=== PATIENT | female | born 1985 | race Caucasian/White ===

== ENCOUNTER 2021-09-20 14:16 | Emergency (ER) | payer BC, SELFPAY ==
[2021-09-20 14:31] VITALS: BP 144/108; PULSE 103; RESP 20; TEMP 36.6; O2SAT 98
--- NOTE | 2021-09-20 15:03 | ED.DENTAL ---
HPI - Dental/Oral General Chief complaint: Dental/Oral Stated complaint: Rt Facial Swelling Source: patient and RN notes reviewed Mode of arrival: ambulatory History of Present Illness HPI Narrative: This is a 36-year-old female who presented to urgent care with complaints of right teeth pain. According to patient she has had a fracture tooth for several months. She is currently looking for a dentist. She noted that last night her jaw and gums on her right side swelled up her decayed teeth. It would discharge home with antibiotics and ibuprofen and will follow up with her dentist. The patient denies SOB, CP, palpitation, extremity numbness, lightheadedness, dizziness, constipation, diarrhea, chills, or fever. Teeth map: 1. decay fracture and abscess 2. decay and abscess Related Data Allergies Allergy/AdvReac Type Severity Reaction Status Date / Time No Known Allergies Allergy Verified 09/20/21 14:55 Review of Systems Review of Systems: A 14 organ system Review of Systems was performed and pertinent positives included in the HPI, otherwise remaining ROS is negative. [facility] Family History Family History (Updated 09/20/21 @ 15:04 by ADELA DrewP-C) Other Family history non-contributory Exam Narrative: GENERAL: This is a well-nourished, well-developed patient, in no apparent distress. HEAD: normocephalic, atraumatic. EYES: PERRL. Sclera clear/white. Vision is grossly intact. EARS: External ears normal, auditory canals clear and without drainage, TMs normal without perforation. Hearing grossly intact. NOSE: External nose normal with no obvious nasal discharge, nares without redness, no rhinorrhea. THROAT: Mucous membranes moist, posterior pharynx clear. NECK: Neck supple, non-tender without lymphadenopathy, masses or thyromegaly. CARDIOVASCULAR: Regular rate and rhythm without murmurs, gallops, or rubs. RESPIRATORY: Clear to auscultation. Breath sounds equal bilaterally. No wheezes, rales, or rhonchi. GASTROINTESTINAL: Abdomen soft, non-tender, nondistended. Bowel sounds are active. No hepato-splenomegaly, or palpable masses. No guarding. SKIN: warm, intact with no suspicious lesions or rash, good texture and turgor. NEURO: awake, alert, and oriented to person, place and time. There were no obvious focal neurologic abnormalities. Steady gait EXTREMITIES: Normal range of motion. No edema. No calf tenderness. Negative Homans sign bilaterally. BACK: Nontender without deformity or crepitance. No flank tenderness. Mouth: Tooth #32-fractured decayed abscessed tooth, tooth #30 decayed and abscessed tooth Course Course Emergency Course: Patient will be treated with Augmentin x7 days and ibuprofen for a fracture, decayed and abscessed tooth Vital Signs Vital signs: Vital Signs Temperature 97.8 F 09/20/21 14:31 Pulse Rate 103 H 09/20/21 14:31 Respiratory Rate 20 09/20/21 14:31 Blood Pressure 144/108 H 09/20/21 14:31 Pulse Oximetry 98 09/20/21 14:31 Temperature 97.8 F 09/20/21 14:31 Pulse Rate 103 H 09/20/21 14:31 Respiratory Rate 20 09/20/21 14:31 Blood Pressure 144/108 H 09/20/21 14:31 Pulse Oximetry 98 09/20/21 14:31 MDM - Dental/Oral Differential Diagnosis Differential diagnosis: Likely gingival abscess, dental caries and dental abscess Discharge Plan Discharge Clinical Impression: Abscessed tooth, Fracture of tooth Patient Disposition: Home, Self-Care Condition: Stable Instructions: Antibiotic Form, Dental Abscess (ED) Additional Instructions: Avoid temperature extremes May apply heat or ice to the face Gentle brushing and flossing Antibiotic as directed Tylenol for lesser pain Use ibuprofen regularly Use the medication as provided for severe pain--caution each tablet contains 325 mg of Tylenol--the maximum dose of Tylenol is 4000 mg in 24 hours. This medication may cause constipation consider starting a laxative at this time Follow-up with
== END 2021-09-20 15:14 | disposition home or self-care (01) ==
PROVIDERS: Emergency Provider Nurse Practitioner
DX: K04.7 Periapical abscess without sinus (principal); S02.5XXA Fracture of tooth (traumatic), initial encounter for closed fracture
CPT/HCPCS: 99213; G0463

== ENCOUNTER 2022-03-20 16:10 | Emergency (ER) | payer BC, SELFPAY ==
[2022-03-20 16:12] VITALS: BP 138/118; PULSE 111; RESP 22; TEMP 36.3; O2SAT 99
--- NOTE | 2022-03-20 16:24 | PC.NURSE ---
blood glucose was 352 at 1622
[2022-03-20 16:27] LABS: Glucose Point of Care 352 mg/dl (65-105)
[2022-03-20 16:35] LABS: Basophils Percent Auto 0.4 % (0.2-1.2); Eosinophils Absolute Auto 0.2 K/mm3 (0-0.3); Eosinophils Percent Auto 1.9 % (0-4.4); Hematocrit 41.9 % (37.0-47.0); Hemoglobin 12.7 g/dL (12.0-15.0); Immature Granulocyte Absolute 0.08 K/mm3 (0.00-0.031); Immature Granulocyte Percent A 0.8 % (0-0.5); Lymphocytes Absolute Auto 1.94 K/mm3 (0.9-3.2); Lymphocytes Percent Auto 20.2 % (18.3-44.2); Mean Corpuscular HGB Conc 30.3 g/dl (32-36); Mean Corpuscular Hemoglobin 26.5 pg (26-34); Mean Corpuscular Volume 87.3 fl (80-100); Mean Platelet Volume 9.4 fl (7.4-10.4); Monocytes Absolute Auto 0.8 K/mm3 (0.1-0.6); Monocytes Percent Auto 8.1 % (2.6-8.5); Neutrophils Absolute Auto 6.6 K/mm3 (1.3-6.7); Neutrophils Percent Auto 68.6 % (45.5-73.1); Platelet Count Result 309 k/mm3 (150-375); Red Cell Distribution Width 18.6 % (11.5-14.5); White Blood Count 9.6 K/mm3 (4.5-10.0)
[2022-03-20 16:46] LABS: Alanine Aminotransferase 49 U/L (4-35); Albumin Level 4.1 g/dL (3.5-5.1); Alkaline Phosphatase 163 U/L (38-126); Anion Gap 8 mmol/L (8-16); Aspartate Amino Transferase 53 U/L (14-36); Bilirubin,Total 0.3 mg/dL (0.2-1.3); Blood Urea Nitrogen 11 mg/dL (7-17); Calcium 8.8 mg/dL (8.4-10.2); Carbon Dioxide 28 mmol/L (22-30); Chloride 93 mmol/L (98-107); Estimated CRCL calculation 254 ml/min; Estimated Glomerular Filt Rate > 60; Glucose 344 mg/dL (65-110); Magnesium 1.6 mg/dL (1.6-2.3); Phosphorus 3.6 mg/dL (2.5-4.5); Potassium 4.1 mmol/L (3.4-5.0); Sodium 129 mmol/L (137-145)
[2022-03-20 16:49] LABS: Beta-Hydroxybutyrate/Acetoacetate 0.09 mmol/L (0.02-0.27)
--- NOTE | 2022-03-20 17:16 | PC.NURSE ---
Patient came to triage desk and told this RN that she would be unable to wait to be seen. Patient asked this RN when is the ER less busy . This RN answered the patient's question honestly. The patient left without being seen and stated that she would come back later in the evening.
== END 2022-03-20 17:48 | disposition left against medical advice (07) ==
LOC: ANHED 17:29
PROVIDERS: Emergency Provider Emergency Medicine
DX: R73.9 Hyperglycemia, unspecified (principal); Z53.21 Procedure and treatment not carried out due to patient leaving prior to being seen by health care provider
CPT/HCPCS: 36415; 80053; 82010; 82948; 83735; 84100; 85025; 99199

== ENCOUNTER 2022-03-20 22:23 | Observation (INO) | payer BC, SELFPAY ==
[2022-03-20 22:32] VITALS: BP 146/94; PULSE 102; RESP 18; TEMP 36.1; O2SAT 98
[2022-03-20 22:50] LABS: Glucose Point of Care 368 mg/dl (65-105)
[2022-03-21] VITALS (12 sets, daily range): BP systolic 148–182; BP diastolic 80–100; PULSE 92–120; RESP 14–19; TEMP 36.6–36.7; O2SAT 92–100; BMI 63.6
--- NOTE | 2022-03-21 00:23 | ED.RECABL ---
HPI - Recheck/Abnormal Lab/Rx General Chief Complaint: Recheck/Abnormal Lab/Rx Stated Complaint: high blood sugar Time Seen by Provider: 03/21/22 00:13 Source: patient Mode of arrival: ambulatory Limitations: no limitations History of Present Illness HPI narrative: Pt has been feeling tired and weak for the last couple of months and has noticed frequent urination and excessive thirst. Pt started checking her blood sugars a couple of weeks ago and they have been from the mid 200s to over 400 last night. Pt has no prior history of DM and no PCP. Related Data Allergies Allergy/AdvReac Type Severity Reaction Status Date / Time No Known Allergies Allergy Verified 09/20/21 14:55 Review of Systems Review of Systems: All systems reviewed & are unremarkable except as noted in HPI and below [facility] Family History Family History (Updated 09/20/21 @ 15:04 by ADELA DrewP-C) Other Family history non-contributory Exam Const: General: no acute distress Orientation/consciousness: patient oriented x3 HENMT: Head: normal to inspection Resp: Effort & Inspection: normal respiratory effort Auscultation: clear to auscultation bilaterally Cardio: Rate: regular rate Rhythm: regular rhythm GI: GI Palp: Yes Soft to palpation Auscultation: normal bowel sounds Skin: General skin exam: normal color Rashes: no rashes Neuro: General: patient oriented x3, moves all extremities and no focal motor deficits Extrem: General: normal to inspection and no clubbing, cyanosis or edema Psych: Appearance: grossly normal Mental Status: mental status grossly normal Thought content: Yes Normal thought content present Course Vital Signs Vital signs: Vital Signs Temperature 97.0 F L 03/20/22 22:32 Pulse Rate 102 H 03/20/22 22:32 Respiratory Rate 18 03/20/22 22:32 Blood Pressure 146/94 H 03/20/22 22:32 Pulse Oximetry 98 03/20/22 22:32 Temperature 97.0 F L 03/20/22 22:32 Pulse Rate 96 03/21/22 02:28 Respiratory Rate 19 03/21/22 02:28 Blood Pressure 163/90 H 03/21/22 02:28 Pulse Oximetry 100 03/21/22 02:28 MDM - Recheck/Abnormal Lab/Rx Lab Data Result diagrams: 03/21/22 00:48 03/21/22 01:38 Labs: Lab Results 03/20/22 03/21/22 03/21/22 Range/Units 22:46 00:48 00:58 WBC 10.2 H (4.5-10.0) K/mm3 RBC 4.65 (4.2-5.4) M/mm3 Hgb 12.9 (12.0-15.0) g/dL Hct 40.7 (37.0-47.0) % MCV 87.5 (80-100) fl MCH 27.7 (26-34) pg MCHC 31.7 L (32-36) g/dl RDW 18.6 H (11.5-14.5) % Plt Count 361 (150-375) k/mm3 MPV 9.9 (7.4-10.4) fl Immature Gran % (Auto) 0.8 H (0-0.5) % Neut % (Auto) 66.9 (45.5-73.1) % Lymph % (Auto) 21.9 (18.3-44.2) % [place] % (Auto) 8.2 (2.6-8.5) % Eos % (Auto) 1.8 (0-4.4) % Baso % (Auto) 0.4 (0.2-1.2) % Lymph # (Auto) 2.22 (0.9-3.2) K/mm3 [place] # (Auto) 0.8 H (0.1-0.6) K/mm3 Eos # (Auto) 0.2 (0-0.3) K/mm3 Baso # (Auto) 0.0 (0.0-0.1) K/mm3 Abs Immat Gran (auto) 0.08 H (0.00-0.031) K/mm3 Absolute Neuts (auto) 6.8 H (1.3-6.7) K/mm3 Absolute Nucleated RBC 0.0 (0.0-0.012) K/mm3 Nucleated RBC % 0.0 (0.0-0.2) % Sodium (137-145) mmol/L Potassium (3.4-5.0) mmol/L Chloride (98-107) mmol/L Carbon Dioxide (22-30) mmol/L Anion Gap (8-16) mmol/L BUN (7-17) mg/dL Creatinine (0.7-1.0) mg/dL Estim Creat Clear Calc ml/min Estimated GFR (59 - ) Glucose (65-110) mg/dL POC Capillary Glucose 368 H 362 H (65-105) mg/dl Calcium (8.4-10.2) mg/dL Phosphorus (2.5-4.5) mg/dL Magnesium (1.6-2.3) mg/dL Total Bilirubin (0.2-1.3) mg/dL AST (14-36) U/L ALT (4-35) U/L Alkaline Phosphatase (38-126) U/L Total Protein (6.3-8.2) g/dL Albumin (3.5-5.1) g/dL Beta-Hydroxybutyrate/Acetoacetate (0.02-0.27) mmol/L Serum HCG, Qual 03/21/22 03/21/22 03/21/22 Range/Units 0
--- NOTE | 2022-03-21 00:30 | PC.NURSE ---
PT. talking with RN states she has not had a period in six months and wants to make MD aware. ERP. notified.
[2022-03-21 00:55] LABS: Basophils Percent Auto 0.4 % (0.2-1.2); Eosinophils Absolute Auto 0.2 K/mm3 (0-0.3); Eosinophils Percent Auto 1.8 % (0-4.4); Hematocrit 40.7 % (37.0-47.0); Hemoglobin 12.9 g/dL (12.0-15.0); Immature Granulocyte Absolute 0.08 K/mm3 (0.00-0.031); Immature Granulocyte Percent A 0.8 % (0-0.5); Lymphocytes Absolute Auto 2.22 K/mm3 (0.9-3.2); Lymphocytes Percent Auto 21.9 % (18.3-44.2); Mean Corpuscular HGB Conc 31.7 g/dl (32-36); Mean Corpuscular Hemoglobin 27.7 pg (26-34); Mean Corpuscular Volume 87.5 fl (80-100); Mean Platelet Volume 9.9 fl (7.4-10.4); Monocytes Absolute Auto 0.8 K/mm3 (0.1-0.6); Monocytes Percent Auto 8.2 % (2.6-8.5); Neutrophils Absolute Auto 6.8 K/mm3 (1.3-6.7); Neutrophils Percent Auto 66.9 % (45.5-73.1); Platelet Count Result 361 k/mm3 (150-375); Red Blood Count 4.65 M/mm3 (4.2-5.4); Red Cell Distribution Width 18.6 % (11.5-14.5); White Blood Count 10.2 K/mm3 (4.5-10.0)
[2022-03-21] MEDS: INSULIN HUMAN REGULAR (*BKC) 100 UNITS/ML 12 UNITS IV PUSH (01:01)
[2022-03-21] MEDS: SODIUM CHLORIDE 0.9% IV 1,000 ML 999 ML IV CONT (01:01)
--- NOTE | 2022-03-21 01:04 | PM.IMHP ---
H&P: HPI History of Present Illness Date/Time: 03/21/22 01:04 Chief Complaint: Abnormal blood sugar. Narrative: This is a 36-year-old female with past medical history significant for morbid obesity, tobacco dependence. Patient presents today to the emergency room for evaluation due to abnormal blood sugars when testing at home and has had consistently elevated values for the last 3 months or so but worse in the last 5 days has noted also polydipsia ,polyphagia, polyuria, also amenorrhea for 6 months now. Patient denies any fevers, rigors, chills, cough, sputum production, no nausea ,vomiting, pain or burning with urination, has muscles aches and pains and tingling sensation on in her legs and feet, no chest pain, no PND, no orthopnea, no leg swelling. Prior to coming to the emergency room patient had a reading that was in the 400's. In emergency room preliminary workup was significant for complete metabolic profile with a blood sugar 240, AST ALAT 40 and 41, alk phos 140. Decision has been made to admit the patient for further evaluation, management and treatment. Review of Systems Review of Systems: Abnormal blood sugars readings at home consistently in the 200s and 1 for 100 reading, polydipsia, polyphagia, polyuria, increased thirst. Feeling tired Constitutional: Constitutional: Denies chills, Reports fatigue, Denies fever(s), Reports lethargy, Denies malaise, Denies night sweats and Denies weakness Eyes: Eyes: Denies change in vision ENT: Denies dysphagia, Denies vertigo, Denies dizziness, Denies nasal congestion, Denies nasal discharge, Denies nasal obstruction and Denies odynophagia Cardiovascular: Cardiovascular: Denies chest pain, Denies pedal edema, Denies edema, Denies claudication, Denies leg edema, Denies lightheadedness, Denies radiating jaw, neck or arm pain, Denies palpitations, Denies dyspnea on exertion and Denies orthopnea Respiratory: Respiratory: Denies cough and Denies dyspnea Gastrointestinal: Gastrointestinal: Denies abdominal pain, Denies dyspepsia, Denies heartburn, Denies diarrhea, Denies nausea and Denies vomiting Genitourinary: Genitourinary: Denies dysuria Musculoskeletal: Musculoskeletal: Reports myalgias, Denies arthralgias, Denies joint swelling and Reports tingling Integumentary/Breasts: Skin/Breast: Denies rash Neurologic: Denies focal weakness, Denies Sensory deficit (Neuro), Reports tingling and Reports paresthesias Psychiatric: Psychiatric: Reports no additional psychiatric complaints and Reports as per HPI Endocrine: Endocrine: Denies cold intolerance, Reports fatigue, Denies flushing, Denies heat intolerance, Reports polyphagia, Reports polydipsia and Reports polyuria Hematologic/Lymphatic: Hematologic/Lymphatic: Reports no additional hematologic/lymphatic complaints and Reports as per HPI Allergic/Immunologic: Allergic/Immunologic: Reports no additional allergic/immunologic complaints and Reports as per HPI PMFSH Family History Family History (Updated 03/21/22 @ 04:11 by Yasmin Bar RN) Father Family history non-contributory History of blood clots Diabetes mellitus Hypertension Mother Hypertension Other Acute myocardial infarction Social History Social History Smoking status: Current some day smoker Alcohol intake: never Substance use: never Spiritual care concerns: No Meds Home Medications and Allergies Home Medications Medication Instructions Recorded Confirmed Type melatonin 10 mg PO HS PRN 03/21/22 03/21/22 History tramadol 50 mg PO HS PRN 03/21/22 03/21/22 History Allergies Allergy/AdvReac Type Severity Reaction Status Date / Time No Known Allergies Allergy Verified 09/20/21 14:55 Vital Signs Vital Signs - 24 hr 03/20/22 22:32 03/21/22 00:30 Temperature 97.0 F L Pulse Rate 102 H 98 Respiratory Rate 18 14 Blood Pressure 146/94 H 150/80 H Pulse Oximetry 98 100
[2022-03-21 01:09] LABS: Glucose Point of Care 362 mg/dl (65-105)
--- NOTE | 2022-03-21 01:16 | PC.NURSE ---
pt. unable to urinate at this time. ERP aware
[2022-03-21 02:09] LABS: Alanine Aminotransferase 44 U/L (4-35); Albumin Level 3.8 g/dL (3.5-5.1); Alkaline Phosphatase 144 U/L (38-126); Anion Gap 8 mmol/L (8-16); Aspartate Amino Transferase 41 U/L (14-36); Bilirubin,Total 0.2 mg/dL (0.2-1.3); Blood Urea Nitrogen 12 mg/dL (7-17); Calcium 8.5 mg/dL (8.4-10.2); Carbon Dioxide 28 mmol/L (22-30); Chloride 98 mmol/L (98-107); Estimated CRCL calculation 259 ml/min; Estimated Glomerular Filt Rate > 60; Glucose 240 mg/dL (65-110); Magnesium 1.6 mg/dL (1.6-2.3); Phosphorus 3.8 mg/dL (2.5-4.5); Potassium 3.8 mmol/L (3.4-5.0); Sodium 134 mmol/L (137-145)
[2022-03-21 02:11] LABS: Glucose Point of Care 217 mg/dl (65-105)
[2022-03-21 02:14] LABS: SPREG INTERNAL CONTROL Positive; Serum Qual hCG Negative
[2022-03-21 02:53] LABS: Beta-Hydroxybutyrate/Acetoacetate 0.07 mmol/L (0.02-0.27)
[2022-03-21 03:18] LABS: Add Urine Microscopic? YES; Appearance Urine Cloudy (Clear); Bilirubin Urine Negative (Negative); Blood Urine Negative (Negative); Color Urine Yellow (Yellow); Glucose Urine UA 3+ mg/dL (Negative); Ketones Urine Negative (Negative); Leukocyte Esterase Ur Negative LEU/UL (Negative); Mucus Urine Rare /lpf; Nitrate Urine Negative (Negative); Protein Urine Negative (Negative); Specific Grav Ur 1.027 (1.001-1.035); Squamous Epithelial Cell Urine Moderate /hpf (Few); Urobilinogen Urine Negative mg/dL (<2.0); WBC Urine 0-3 /hpf
[2022-03-21] MEDS: SODIUM CHLORIDE 0.9% IV 1,000 ML 125 ML IV CONT ×3 (04:02→20:48)
--- NOTE | 2022-03-21 04:09 | ADMGEN ---
This patient, Nancy Roy, was admitted to Medical Room 341-01. Patient/family oriented to hospital policies and general routines including ID bracelet, bed and alarms, visiting hours, pain management, procedures, bathroom and other care routines, personal items, smoking policy, room service/diet, and visiting hours. Information on how to activate the Rapid Response Team has been discussed. Patient/Family are encouraged to report perceived risks to care and to ask questions if they do not understand what they are told or what they should do.
--- NOTE | 2022-03-21 06:49 | PC.NURSE ---
Pt is refusing heart monitor at this time states she has never had any heart problems, and doesn't feel like she needs this.
[2022-03-21 07:47] LABS: Glucose Point of Care 241 mg/dl (65-105)
[2022-03-21] MEDS: INSULIN ASPART (*BKC) 100 UNITS/ML 6 UNITS SUB-Q ×3 (07:53→16:55)
[2022-03-21 09:24] LABS: Hemoglobin A1C 8.3 % (<5.7)
[2022-03-21] MEDS: metFORMIN HCL XR 500 MG TAB.SR.24H PO ×2 (09:32→16:54)
[2022-03-21] MEDS: GLIMEPIRIDE 1 MG TABLET PO ×2 (09:33→16:54)
[2022-03-21 11:46] LABS: Glucose Point of Care 251 mg/dl (65-105)
[2022-03-21] MEDS: INSULIN ASPART (*BKC) 100 UNITS/ML SUB-Q (11:56)
--- NOTE | 2022-03-21 12:49 | PM.IMPN ---
Progress Note: A&P Assessment and Plan (1) Diabetes mellitus, new onset: Code(s): E11.9 - Type 2 diabetes mellitus without complications Status: Acute Assessment and Plan: Admit to regular medical floor Will start Lantus prospect postprandial coverage. Accu-Cheks AC and HS Carb consistent diet 1800 calorie Continue to monitor nurses educator consult 03/22/2022 interval history: patient is morbidly obese with BMI of 63 presented with a hyperglycemia, polyuria, polydipsia, polyphagia, most likely patient has type 2 diabetes, polycystic ovary disease and metabolic syndrome, patient hemoglobin A1c is 8.3, started the patient on metformin and glimepiride, patient is instructed there with metformin patient will be taken to have regular cycle and risk of , patient is instructed to have diabetic an eye exam as soon as possible upon discharge, will have perioperative educator and dietitian consult the patient, will monitor patient overnight with sliding scale remains clinically stable will discharge the patient home tomorrow. (2) Tobacco dependence: Code(s): F17.200 - Nicotine dependence, unspecified, uncomplicated Status: Acute Assessment and Plan: Consult about tobacco cessation Nicotine patch as needed (3) Morbid obesity with BMI of 60.0-69.9, adult: Code(s): E66.01 - Morbid (severe) obesity due to excess calories; Z68.44 - Body mass index [BMI] 60.0-69.9, adult Status: Acute Assessment and Plan: Lifestyle and diet modifications. Subjective Date/time seen: 03/21/22 12:49 Chief Complaint: Abnormal blood sugar. Narrative: This is a 36-year-old female with past medical history significant for morbid obesity, tobacco dependence. Patient presents today to the emergency room for evaluation due to abnormal blood sugars when testing at home and has had consistently elevated values for the last 3 months or so but worse in the last 5 days has noted also polydipsia ,polyphagia, polyuria, also amenorrhea for 6 months now. Patient denies any fevers, rigors, chills, cough, sputum production, no nausea ,vomiting, pain or burning with urination, has muscles aches and pains and tingling sensation on in her legs and feet, no chest pain, no PND, no orthopnea, no leg swelling. Prior to coming to the emergency room patient had a reading that was in the 400's. In emergency room preliminary workup was significant for complete metabolic profile with a blood sugar 240, AST ALAT 40 and 41, alk phos 140. Decision has been made to admit the patient for further evaluation, management and treatment. 03/22/2022 interval history: patient is morbidly obese with BMI of 63 presented with a hyperglycemia, polyuria, polydipsia, polyphagia, most likely patient has type 2 diabetes, polycystic ovary disease and metabolic syndrome, patient hemoglobin A1c is 8.3, started the patient on metformin and glimepiride, patient is instructed there with metformin patient will be taken to have regular cycle and risk of , patient is instructed to have diabetic an eye exam as soon as possible upon discharge, will have perioperative educator and dietitian consult the patient, will monitor patient overnight with sliding scale remains clinically stable will discharge the patient home tomorrow. Review of Systems Review of Systems: All systems reviewed & are unremarkable except as noted in HPI and below Exam Narrative: morbidly obese Patient is comfortable, NAD HEENT: eyes are clear and none icteric LUNGS:CTA HEART: RR S1S2 ABD: BS+, Soft and nontender Lower extremities: no edema SKIN: nonjaundiced Neuro: grossly intact. Objective Data Vital Signs Vital Signs: Vital Signs - 24 hr 03/20/22 22:32 03/21/22 00:30 03/21/22 02:28 Temperature 97.0 F L Pulse Rate 102 H 98 96 Respiratory Rate 18 14 19 Blood Pressure 146/94 H 150/80 H 163/90 H Pulse Oximetry 98 100 100 03/21/22 03:27 03/21/22 04:00 02/24
[2022-03-21] MEDS: HYDROcodone/acetaminophen (*CRX) 5-325 MG TABLET 1 TAB PO ×2 (13:28→22:55)
--- NOTE | 2022-03-21 13:50 | PCNSR ---
On 03/21/22, the student,Caron Armando, provided care and completed [facility] documentation on this patient. I have reviewed the student's documentation and agree with the findings.
[2022-03-21] MEDS: GABAPENTIN 300 MG CAPSULE PO ×2 (14:38→20:46)
[2022-03-21 16:24] LABS: Glucose Point of Care 200 mg/dl (65-105)
[2022-03-21 20:04] LABS: Glucose Point of Care 132 mg/dl (65-105)
[2022-03-21] MEDS: traMADol HCL (*CRX) 50 MG TABLET PO (20:46)
[2022-03-21] MEDS: MELATONIN 5 MG TABLET 10 MG PO (20:46)
[2022-03-21] MEDS: INSULIN GLARGINE (*BKC) 100 UNITS/ML 20 UNITS SUB-Q (20:48)
[2022-03-22] VITALS: PULSE 105
[2022-03-22 02:08] LABS: Glucose Point of Care 183 mg/dl (65-105)
[2022-03-22] MEDS: CALCIUM CARBONATE (TUMS) 500 MG (200 MG ELEMENTAL) 400 MG PO (03:41)
[2022-03-22] MEDS: ONDANSETRON INJ 4 MG/2 ML VIAL IV PUSH (03:41)
[2022-03-22] MEDS: SODIUM CHLORIDE 0.9% IV 1,000 ML 125 ML IV CONT (03:45)
[2022-03-22 04:00] VITALS: PULSE 107
[2022-03-22 05:43] VITALS: BP 141/72; PULSE 103; RESP 18; TEMP 36.6; O2SAT 95
[2022-03-22] MEDS: GABAPENTIN 300 MG CAPSULE PO ×2 (05:47→13:23)
[2022-03-22 05:49] LABS: Hemoglobin 12.4 g/dL (12.0-15.0); Mean Corpuscular HGB Conc 30.2 g/dl (32-36); Mean Corpuscular Hemoglobin 27.2 pg (26-34); Mean Corpuscular Volume 89.9 fl (80-100); Platelet Count Result 289 k/mm3 (150-375); Red Blood Count 4.56 M/mm3 (4.2-5.4); Red Cell Distribution Width 18.5 % (11.5-14.5); White Blood Count 9.9 K/mm3 (4.5-10.0)
[2022-03-22 05:59] LABS: Alanine Aminotransferase 45 U/L (4-35); Albumin Level 3.7 g/dL (3.5-5.1); Alkaline Phosphatase 141 U/L (38-126); Anion Gap 7 mmol/L (8-16); Aspartate Amino Transferase 43 U/L (14-36); Bilirubin,Total 0.3 mg/dL (0.2-1.3); Blood Urea Nitrogen 14 mg/dL (7-17); Calcium 8.4 mg/dL (8.4-10.2); Carbon Dioxide 27 mmol/L (22-30); Chloride 102 mmol/L (98-107); Cholesterol 160 mg/dL (0-200); Estimated CRCL calculation 220 ml/min; Estimated Glomerular Filt Rate > 60; Glucose 190 mg/dL (65-110); HDL Direct 44 mg/dL; Magnesium 1.8 mg/dL (1.6-2.3); Potassium 4.5 mmol/L (3.4-5.0); Sodium 136 mmol/L (137-145); Triglycerides 189 mg/dL (<150)
[2022-03-22 06:10] LABS: LDL Cholesterol Direct 80 mg/dL
[2022-03-22 07:22] LABS: Glucose Point of Care 200 mg/dl (65-105)
[2022-03-22 08:00] VITALS: PULSE 97
[2022-03-22 08:18] VITALS: O2SAT 96
[2022-03-22] MEDS: metFORMIN HCL XR 500 MG TAB.SR.24H PO (08:41)
[2022-03-22] MEDS: GLIMEPIRIDE 1 MG TABLET PO (08:41)
[2022-03-22] MEDS: INSULIN ASPART (*BKC) 100 UNITS/ML 6 UNITS SUB-Q ×2 (08:41→11:41)
--- NOTE | 2022-03-22 09:53 | PM.DS ---
DS: Admitting Diagnosis Discharge Date 03/22/2022 Admitting Diagnosis Abnormal blood sugar. DS: Discharge Diagnosis Discharge Diagnosis (1) Diabetes mellitus, new onset: Code(s): E11.9 - Type 2 diabetes mellitus without complications Status: Acute Assessment and Plan: Admit to regular medical floor Will start Lantus prospect postprandial coverage. 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 03/22/2022 interval history: patient is morbidly obese with BMI of 63 presented with a hyperglycemia, polyuria, polydipsia, polyphagia, most likely patient has type 2 diabetes, polycystic ovary disease and metabolic syndrome, patient hemoglobin A1c is 8.3, started the patient on metformin and glimepiride, patient is instructed there with metformin patient will be taken to have regular cycle and risk of , patient is instructed to have diabetic an eye exam as soon as possible upon discharge, will have director cost and dietitian consult the patient, will monitor patient overnight with sliding scale remains clinically stable will discharge the patient home tomorrow. (2) Tobacco dependence: Code(s): F17.200 - Nicotine dependence, unspecified, uncomplicated Status: Acute Assessment and Plan: Consult about tobacco cessation Nicotine patch as needed (3) Morbid obesity with BMI of 60.0-69.9, adult: Code(s): E66.01 - Morbid (severe) obesity due to excess calories; Z68.44 - Body mass index [BMI] 60.0-69.9, adult Status: Acute Assessment and Plan: Lifestyle and diet modifications. DS: Summary Hospital Course Reason for hospitalization: Chief Complaint: Abnormal blood sugar. Narrative: This is a 36-year-old female with past medical history significant for morbid obesity, tobacco dependence. Patient presents today to the emergency room for evaluation due to abnormal blood sugars when testing at home and has had consistently elevated values for the last 3 months or so but worse in the last 5 days has noted also polydipsia ,polyphagia, polyuria, also amenorrhea for 6 months now. Patient denies any fevers, rigors, chills, cough, sputum production, no nausea ,vomiting, pain or burning with urination, has muscles aches and pains and tingling sensation on in her legs and feet, no chest pain, no PND, no orthopnea, no leg swelling. Prior to coming to the emergency room patient had a reading that was in the 400's. In emergency room preliminary workup was significant for complete metabolic profile with a blood sugar 240, AST ALAT 40 and 41, alk phos 140. Decision has been made to admit the patient for further evaluation, management and treatment. Hospital Course: 03/22/2022 interval history: patient is morbidly obese with BMI of 63 presented with a hyperglycemia, polyuria, polydipsia, polyphagia, most likely patient has type 2 diabetes, polycystic ovary disease and metabolic syndrome, patient hemoglobin A1c is 8.3, started the patient on metformin and glimepiride, patient is instructed there with metformin patient will be taken to have regular cycle and risk of , patient is instructed to have diabetic an eye exam as soon as possible upon discharge, will have director cost and dietitian consult the patient, will monitor patient overnight with sliding scale remains clinically stable will discharge the patient home tomorrow. Patient remains clinically stable, able to tolerate metforming and glimepride, will discharge patient today to follow up with her primary care provider. Time Spent with Patient Time attestation: Total time spent providing and/or coordinating discharge services: Exam Narrative: morbidly obese Patient is comfortable, NAD HEENT: eyes are clear and none icteric LUNGS:CTA HEART: RR S1S2 ABD: BS+, Soft and nontender Lower extremities: no edema SKIN: nonjaundiced Neuro: grossly intact. DS: Data Data
[2022-03-22] MEDS: METOCLOPRAMIDE HCL INJ 10 MG/2 ML VIAL IV PUSH (10:36)
[2022-03-22] MEDS: KETOROLAC 30 MG/ML VIAL (*BKC) IM (10:36)
[2022-03-22 11:28] LABS: Glucose Point of Care 258 mg/dl (65-105)
[2022-03-22] MEDS: INSULIN ASPART (*BKC) 100 UNITS/ML SUB-Q (11:41)
--- NOTE | 2022-03-22 11:55 | PCCDE ---
diabetes education f/up: attempted to f/up earlier today but pt was crying/having a migraine. Visited at 1155 and pt feeling better. 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 Pt denies hx of DM but has been unsuccessful in finding a doc that takes her insurance for 2 years. Care management is assisting with this. Pt has Diabetes Management book at bedside. Discussed type 2 diabetes and managing with diet, exercise, medication and monitoring. DIET: seen by RD yesterday. Pt works until 1130pm and sts she only eats 1 meal/day at 1130pm. Denies drinking sugar added beverages; only water and occasional diet soda. Advised to eat at least 3x/day spacing meals no more than 4-5 hours apart. Suggested using Glucurna Shake as meal replacement OD and taking a meal to work instead of eating late and going to bed. PHYSICAL ACTIVITY: Pt sts she work 16 hours a day 6 days a week at [employer]. Encouraged pt to be physically active. MEDICATIONS: Pt will be going home on 500mg Metformin BID and 1 mg Amaryl BID. discussed med names, actions, when to take, side effects and risk of hypo on Amaryl. MONITORING: Provided ONE TOUCH VERIO REFLECT bg meter (free of charge). This meter/supplies are covered by [facility] health plan. Recommended to test BID until f/up with PCP. Reviewed when to test and BG goals. Encouraged to sync meter with ONE TOUCH REVEAL rebecca; pt declined to do at this time. Explained A1c results, target A1c and how often to recheck. Provided DM Specialist contact info and encouraged to call prn.
== END 2022-03-22 13:30 | disposition home or self-care (01) ==
LOC: ANHED 03-21 02:13 → ANH3MED 03-21 04:23
PROVIDERS: Admitting Provider Internal Medicine; Emergency Provider Emergency Medicine; Visit Provider Family Medicine
DX: E11.65 Type 2 diabetes mellitus with hyperglycemia (principal); F17.210 Nicotine dependence, cigarettes, uncomplicated; E66.01 Morbid (severe) obesity due to excess calories; Z68.44 Body mass index [BMI] 60.0-69.9, adult
CPT/HCPCS: 36415; 80053; 80061; 81001; 82010; 82948; 83036; 83735; 84100; 84703; 85025; 85027; 96361; 96372; 96374; 96375; 99285; A9270; G0378; G0379; J1815; J1885; J2405; J2765; J7030

== ENCOUNTER 2022-04-27 07:23 | Outpatient (CLI) | payer BC, SELFPAY ==
--- NOTE | ~2022-04-27 | US_ITS ---
US abdomen complete EXAMINATION: US Abdomen Complete INDICATION: Abnormal liver function tests PROCEDURE: Realtime High Resolution abdomen ultrasound. COMPARISON: No prior studies for comparison FINDINGS: There are gallstones. No gallbladder wall thickening or pericholecystic fluid. Common bile duct measures 5.6 mm. Liver echotexture is increased, consistent with fatty infiltration.. Pancreas within normal limits. Pancreatic tail is obscured by bowel gas. Spleen is enlarged measuring 15.2 cm. Renal echotexture i s within normal limits bilaterally without hydronephrosis, contour deforming mass or renal stone. Rig ht kidney measures 13.2 cm. Left kidney measures 14.8 cm. Visualized aspects of the aorta and IVC are within normal limits. Portal vein is patent. No sonograph ic Alvarado's sign indicated by the technologist. IMPRESSION: 1: Cholelithiasis. 2.: Hepatic steatosis. 3: Splenomegaly. Reviewed, dictated and finalized at location A.
[2022-04-27 08:45] LABS: Alanine Aminotransferase 39 U/L (6-35); Albumin Level 4.1 g/dL (3.5-5.1); Alkaline Phosphatase 102 U/L (38-126); Anion Gap 8 mmol/L (8-16); Aspartate Amino Transferase 32 U/L (14-36); Bilirubin,Total 0.2 mg/dL (0.2-1.3); Blood Urea Nitrogen 16 mg/dL (7-17); Carbon Dioxide 29 mmol/L (22-30); Chloride 100 mmol/L (98-107); Estimated Glomerular Filt Rate > 60; Glucose 164 mg/dL (65-110); Potassium 4.5 mmol/L (3.4-5.0); Sodium 137 mmol/L (137-145)
[2022-04-27 10:11] LABS: Hepatitis B Surface Antigen Negative (Negative)
[2022-04-27 10:16] LABS: HAV RESULT Negative (Negative); Hepatitis B Core IgM Result Negative (Negative)
[2022-04-27 10:28] LABS: Hepatitis C Virus Antibody Negative (Negative)
== END 2022-04-27 07:24 | disposition home or self-care (01) ==
LOC: ANHIMG 07:25
PROVIDERS: PCP Family Medicine; Visit Provider Family Medicine
DX: R79.89 Other specified abnormal findings of blood chemistry (principal); E11.9 Type 2 diabetes mellitus without complications; K80.20 Calculus of gallbladder without cholecystitis without obstruction; K76.0 Fatty (change of) liver, not elsewhere classified; R16.1 Splenomegaly, not elsewhere classified
CPT/HCPCS: 36415; 76700; 80053; 80074

== ENCOUNTER → 2022-07-17 13:30 | Outpatient (CLI) | payer OTHER, SELFPAY ==
--- NOTE | ~2022-07-17 | XR_ITS ---
EXAMINATION: XR lumbar spine 2-3V DATE: 07/17/2022 13:56 INDICATION: Lumbar radiculopathy TECHNIQUE: Anteroposterior and lateral views of the lumbar spine, and cone-down lateral view of the l umbosacral junction were obtained. COMPARISON: None. FINDINGS: There is no fracture, dislocation, or subluxation. The vertebral body heights and intervert ebral disc spaces are maintained. Small degenerative osteophytes project from the anterior endplates of multiple vertebral bodies. IMPRESSION: 1. Mild lumbar spondylosis. Reviewed, dictated and finalized at location B. IMPRESSION: 1. Mild lumbar spondylosis.
== END ==
PROVIDERS: PCP Family Medicine; Visit Provider Family Medicine
DX: M47.26 Other spondylosis with radiculopathy, lumbar region (principal)
CPT/HCPCS: 72100

== ENCOUNTER 2022-07-19 15:24 | Emergency (ER) | payer OTHER, SELFPAY ==
[2022-07-19 15:37] VITALS: BP 148/97; PULSE 102; RESP 18; TEMP 35.9; O2SAT 100
--- NOTE | 2022-07-19 16:01 | ED.GENADULT ---
HPI - General Adult General Chief complaint: Extremity Problem,Nontraumatic Stated complaint: lt leg tenderness Time Seen by Provider: 07/19/22 15:47 Source: patient Mode of arrival: ambulatory Limitations: no limitations History of Present Illness HPI narrative: Patient presents today complaining of left medial calf pain x2 days. Denies any injury or trauma. Denies any redness or swelling. Denies any chest pain or shortness of breath. Denies any history of DVT or PE. She has not tried any [id number] interventions prior to arrival. She currently rates her pain 01/04. Related Data Home Medications Medication Instructions Recorded Confirmed melatonin 10 mg tablet 10 mg PO HS PRN Insomnia 03/21/22 07/19/22 Allergies Allergy/AdvReac Type Severity Reaction Status Date / Time No Known Allergies Allergy Verified 07/19/22 15:38 Review of Systems Review of Systems: CONSTITUTIONAL: Denies body aches, fever, chills, or sweats. EYES: Denies visual changes, redness, or discharge. ENT: Denies rhinorrhea, congestion, sore throat, or otalgia. CARDIOVASCULAR: Denies chest pain, palpitations, or edema. RESPIRATORY: Denies cough or dyspnea. GASTROINTESTINAL: Denies abdominal pain, nausea, vomiting, or diarrhea. GENITOURINARY: Denies dysuria or hematuria. SKIN: Denies rash, itching, or wounds. MUSCULOSKELETAL: + Left leg pain. NEUROLOGIC: Denies headache, numbness, tingling, or weakness. PSYCH: Denies depression or anxiety. 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 Please see nursing chart for further information. There is no relevant family history pertinent to the presenting complaint Exam Narrative: GENERAL: Well-appearing, well-nourished, and in no acute distress. HEAD: Normocephalic, atraumatic. EYES: EOMI. No redness or drainage. Conjunctivae normal. ENT: Mucous membranes pink and moist. NECK: Normal AROM. CHEST: No respiratory distress. EXTREMITIES: Approximately 4 x 4 centimeter area to the proximal medial left calf that is tender to palpation and slightly firm. No erythema. No edema to the calf noted, but is little difficult to assess due to body habitus. Patient endorses no edema to the calf. Distal sensation intact. Capillary refill normal. Pedal pulse normal. SKIN: Warm, dry, no rash. Normal skin turgor. NEURO: No focal deficits. Alert and oriented x3. Gait steady. PSYCH: Normal affect. No signs of depression or anxiety. Course Course Emergency Course: 1607- Called to transfer patient to the ER for further evaluation of symptoms. Spoke with Dr. Constantino. States fuel testing technician leaves at 1630. Recommends giving patient either shot of Lovenox (which is unavailable here) or 10mg Eliquis, and having patient come to the ER tomorrow during the day tomorrow when ultrasound is available for patient. Relayed this information to my patient. She agrees to go tomorrow for evaluation during the day. Level of Care: Express Care Visit Vital Signs Vital signs: Vital Signs Temperature 96.7 F L 07/19/22 15:37 Pulse Rate 102 H 07/19/22 15:37 Respiratory Rate 18 07/19/22 15:37 Blood Pressure 148/97 H 07/19/22 15:37 Pulse Oximetry 100 07/19/22 15:37
== END 2022-07-19 16:20 | disposition home or self-care (01) ==
PROVIDERS: Emergency Provider Nurse Practitioner; PCP Family Medicine
DX: M79.662 Pain in left lower leg (principal); F17.210 Nicotine dependence, cigarettes, uncomplicated
CPT/HCPCS: 99213; G0463

== ENCOUNTER 2022-07-20 10:14 | Emergency (ER) | payer OTHER, SELFPAY ==
[2022-07-20] VITALS (8 sets, daily range): BP systolic 144–158; BP diastolic 89–98; PULSE 102; RESP 16–20; TEMP 36.7; O2SAT 94–98
--- NOTE | ~2022-07-20 | US_ITS ---
EXAMINATION: US venous doppler [facility] DATE: 07/20/2022 11:23 INDICATION: Left lower limb pain and swelling. TECHNIQUE: Grayscale ultrasound images without and with compression and Doppler ultrasound images of the left lower extremity veins were obtained. COMPARISON: None. FINDINGS: The visualized portions of left common femoral vein, profunda (deep) femoral vein, femoral vein, popl iteal vein, peroneal veins, posterior tibial veins, and greater saphenous vein outflow are patent. IMPRESSION: 1. No deep venous thrombosis. Reviewed, dictated and finalized at location A.
[2022-07-20 11:13] LABS: Basophils Absolute Auto 0.1 K/mm3 (0.0-0.1); Basophils Percent Auto 0.5 % (0.2-1.2); Eosinophils Absolute Auto 0.2 K/mm3 (0-0.3); Eosinophils Percent Auto 1.9 % (0-4.4); Hematocrit 41.4 % (37.0-47.0); Hemoglobin 12.5 g/dL (12.0-15.0); Immature Granulocyte Absolute 0.08 K/mm3 (0.00-0.031); Immature Granulocyte Percent A 0.8 % (0-0.5); Lymphocytes Absolute Auto 1.72 K/mm3 (0.9-3.2); Lymphocytes Percent Auto 16.4 % (18.3-44.2); Mean Corpuscular HGB Conc 30.2 g/dl (32-36); Mean Corpuscular Hemoglobin 26.2 pg (26-34); Mean Corpuscular Volume 86.8 fl (80-100); Mean Platelet Volume 9.5 fl (7.4-10.4); Monocytes Absolute Auto 0.7 K/mm3 (0.1-0.6); Monocytes Percent Auto 6.6 % (2.6-8.5); Neutrophils Absolute Auto 7.8 K/mm3 (1.3-6.7); Neutrophils Percent Auto 73.8 % (45.5-73.1); Nucleated Red Blood Cells Perc 0.2 % (0.0-0.2); Platelet Count Result 300 k/mm3 (150-375); Red Blood Count 4.77 M/mm3 (4.2-5.4); Red Cell Distribution Width 18.7 % (11.5-14.5); White Blood Count 10.5 K/mm3 (4.5-10.0)
--- NOTE | 2022-07-20 11:30 | PC.NURSE ---
Patient report received from W[place] Rodriguez. All questions answered and care of patient assumed. Patient returned from [place]. Awaiting results. Mother at bedside and call-light within reach. Will continue to address needs as they arise.
[2022-07-20 11:34] LABS: Partial Thromboplastin Time 21.6 SECONDS (22.3-36.8); Prothrombin Time 12.4 Seconds (11.1-14.7)
[2022-07-20 11:48] LABS: Anion Gap 6 mmol/L (8-16); Blood Urea Nitrogen 8 mg/dL (7-17); Calcium 8.7 mg/dL (8.4-10.2); Carbon Dioxide 31 mmol/L (22-30); Chloride 97 mmol/L (98-107); Estimated CRCL calculation 233 ml/min; Estimated Glomerular Filt Rate > 60; Glucose 193 mg/dL (65-110); Potassium 4.4 mmol/L (3.4-5.0); Sodium 134 mmol/L (137-145)
--- NOTE | 2022-07-20 12:45 | ED.GENADULT ---
HPI - General Adult General Chief complaint: Recheck/Abnormal Lab/Rx Stated complaint: r/o DVT Time Seen by Provider: 07/20/22 10:18 History of Present Illness HPI narrative: Patient is a 37-year-old female who presents ER with left leg pain. Began in the last couple days. Was seen at urgent care yesterday but they could not perform a ultrasound. They gave her an Eliquis and recommend she be seen today. No chest pain or chest pressure. No Swelling. Pain is decreased today. She would like to start some celecoxib for her back so she would really like to have a DVT ruled out. Related Data Home Medications Medication Instructions Recorded Confirmed melatonin 10 mg tablet 10 mg PO HS PRN Insomnia 03/21/22 07/19/22 Allergies Allergy/AdvReac Type Severity Reaction Status Date / Time No Known Allergies Allergy Verified 07/19/22 15:38 Review of Systems Review of Systems: All systems reviewed & are unremarkable except as noted in HPI and below Cardiovascular: Cardiovascular: Denies chest pain, Denies rapid heart rate and Denies radiating jaw, neck or arm pain Respiratory: Respiratory: Denies cough and Denies dyspnea Gastrointestinal: Gastrointestinal: Denies abdominal pain, Denies nausea and Denies vomiting PMFSH Past Medical History Medical History (Updated 07/20/22 @ 12:47 by Jose Sal MD) Anxiety Chronic back pain Family History Family History Father Family history non-contributory History of blood clots Diabetes mellitus Hypertension Acute myocardial infarction Mother Hypertension Social History Social History Smoking status: Current some day smoker Tobacco type: cigarettes Alcohol intake: current Substance use: never 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 HEAD: Normocephalic, atraumatic. ENT: Mucous membranes moist. CHEST: Clear to auscultation. No respiratory distress. HEART: Regular rate and rhythm. Normal peripheral pulses. EXTREMITIES: Normal range of motion. No edema. SKIN: Warm, dry, no rash. NEURO: Alert and oriented x3. PSYCH: Normal mood and affect. Course Course Emergency Course: Informed of results. Discharge home. Vital Signs Vital signs: Vital Signs Blood Pressure 158/98 H 07/20/22 10:35 Temperature 98.0 F 07/20/22 10:38 Pulse Rate 102 H 07/20/22 10:38 Respiratory Rate 20 07/20/22 10:38 Blood Pressure 144/89 H 07/20/22 11:31 Pulse Oximetry 94 07/20/22 12:00 Oxygen Delivery Room Air 07/20/22 10:38 Medical Decision Making Vital Signs Vital Signs: Vital Signs Blood Pressure 158/98 H 07/20/22 10:35 Temperature 98.0 F 07/20/22 10:38 Pulse Rate 102 H 07/20/22 10:38 Respiratory Rate 20 07/20/22 10:38 Blood Pressure 144/89 H 07/20/22 11:31 Pulse Oximetry 94 07/20/22 12:00 Oxygen Delivery Room Air 07/20/22 10:38 Lab Data Result diagrams: 07/20/22 11:05 07/20/22 11:32 Labs: Lab Results 07/20/22 07/20/22 07/20/22 Range/Units 11:05 11:05 11:32 WBC 10.5 H (4.5-10.0) K/mm3 RBC 4.77 (4.2-5.4) M/mm3 Hgb 12.5 (12.0-15.0) g/dL Hct 41.4 (37.0-47.0) % MCV 86.8 (80-100) fl MCH 26.2 (26-34) pg MCHC 30.2 L (32-36) g/dl RDW 18.7 H (11.5-14.5) % Plt Count 300 (150-375) k/mm3 MPV 9.5 (7.4-10.4) fl Immature Gran % (Auto) 0.8 H (0-0.5) % Neut % (Auto) 73.8 H (45.5-73.1) % Lymph % (Auto) 16.4 L (18.3-44.2) % Pickens % (Auto) 6.6 (2.6-8.5) % Eos % (Auto) 1.9 (0-4.4) % Baso % (Auto) 0.5 (0.2-1.2) % Lymph # (Auto) 1.72 (0.9-3.2) K/mm3 Pickens # (Auto) 0.7 H (0.1-0.6) K/mm3 Eos # (Auto) 0.2 (0-0.3) K/mm3 Baso # (Auto) 0.1 (0.0
== END 2022-07-20 13:16 | disposition home or self-care (01) ==
PROVIDERS: Emergency Provider Emergency Medicine; PCP Family Medicine
DX: M79.605 Pain in left leg (principal); F17.210 Nicotine dependence, cigarettes, uncomplicated; Z79.01 Long term (current) use of anticoagulants
CPT/HCPCS: 36415; 80048; 85025; 85610; 85730; 93971; 99284

== ENCOUNTER 2022-07-24 09:31 | Observation (INO) | payer OTHER, SELFPAY ==
[2022-07-24] VITALS (16 sets, daily range): BP systolic 97–151; BP diastolic 60–92; PULSE 87–136; RESP 15–24; TEMP 36.1–36.9; O2SAT 93–98
--- NOTE | ~2022-07-24 | XR_ITS ---
EXAMINATION: XR chest 2V DATE: 07/24/2022 13:37 INDICATION: Fever TECHNIQUE: frontal and lateral views of the chest were obtained. COMPARISON: Chest radiograph dated 11/01/2014 FINDINGS: Evaluation mildly limited by body habitus. No focal airspace opacities, pulmonary edema, pleural effu amanda or pneumothorax. The cardiomediastinal silhouette is normal. Mild thoracic spondylosis. IMPRESSION: 1. No acute cardiopulmonary disease. Reviewed, dictated and finalized at location A.
--- NOTE | ~2022-07-24 | CT_ITS ---
EXAMINATION: CT abdomen pelvis w con DATE: 07/24/2022 21:01 INDICATION: severe right flank pain TECHNIQUE: Computed tomography (CT) of the abdomen and pelvis was performed with 100 mL Omnipaque-350 intravenous contrast. Automated exposure control and iterative reconstruction technique were employe d. The dose-length product was 1635.51 mGy-cm. COMPARISON: 09/19/2018. FINDINGS: The anterior abdominal wall is not included in the [id number]. Lower thorax: Unremarkable Liver: Enlarged fatty infiltrated liver. Biliary/Gallbladder: Cholelithiasis. No bile duct dilation. Pancreas: No mass or duct dilation. Spleen: Enlarged. Adrenals:No mass. Kidneys: No stone or hydronephrosis. The left kidney appears slightly enlarged. There is left perinep hric and periureteral stranding. GI tract: No small or large bowel dilation. Normal appendix. Mesentery/Peritoneum: No ascites, mass, or free air. Retroperitoneum: No mass. Pelvis: Perinephric stranding about the distal ureter. No distal collecting system stone. 8.4 cm pedu nculated fibroid. Soft Tissues: Soft tissues and body wall unremarkable, as visualized. Bones: No acute osseous finding. IMPRESSION: Anterior abdominal wall excluded from the [id number]. Perinephric and periureteral stranding on th e left concerning for ascending infection, in the appropriate clinical context. No CT evidence of uro lithiasis. Hepatosplenomegaly. Cholelithiasis without evidence of cholecystitis. Large pedunculated f ibroid. Reviewed, dictated and finalized at location K. IMPRESSION: Anterior abdominal wall excluded from the [id number]. Perinephric and periur eteral stranding on the left concerning for ascending infection, in the appropr iate clinical context. No CT evidence of urolithiasis. Hepatosplenomegaly. Chol elithiasis without evidence of cholecystitis. Large pedunculated fibroid.
[2022-07-24 10:19] LABS: Basophils Absolute Auto 0.1 K/mm3 (0.0-0.1); Basophils Percent Auto 0.4 % (0.2-1.2); Eosinophils Percent Auto 0.2 % (0-4.4); Hematocrit 38.8 % (37.0-47.0); Immature Granulocyte Absolute 0.25 K/mm3 (0.00-0.031); Immature Granulocyte Percent A 1.8 % (0-0.5); Lymphocytes Absolute Auto 1.04 K/mm3 (0.9-3.2); Lymphocytes Percent Auto 7.4 % (18.3-44.2); Mean Corpuscular HGB Conc 30.9 g/dl (32-36); Mean Corpuscular Volume 84.2 fl (80-100); Mean Platelet Volume 8.7 fl (7.4-10.4); Monocytes Absolute Auto 1.7 K/mm3 (0.1-0.6); Neutrophils Absolute Auto 10.9 K/mm3 (1.3-6.7); Neutrophils Percent Auto 78.2 % (45.5-73.1); Nucleated Red Blood Cells Perc 0.1 % (0.0-0.2); Platelet Count Result 270 k/mm3 (150-375); Red Blood Count 4.61 M/mm3 (4.2-5.4); Red Cell Distribution Width 18.5 % (11.5-14.5)
[2022-07-24 10:42] LABS: Alanine Aminotransferase 26 U/L (6-35); Albumin Level 3.8 g/dL (3.5-5.1); Alkaline Phosphatase 139 U/L (38-126); Anion Gap 10 mmol/L (8-16); Aspartate Amino Transferase 32 U/L (14-36); Bilirubin,Total 0.9 mg/dL (0.2-1.3); Blood Urea Nitrogen 6 mg/dL (7-17); Calcium 8.6 mg/dL (8.4-10.2); Carbon Dioxide 30 mmol/L (22-30); Chloride 91 mmol/L (98-107); Estimated CRCL calculation 178 ml/min; Estimated Glomerular Filt Rate > 60; Glucose 239 mg/dL (65-110); Lipase 19 U/L (23-300); Potassium 4.1 mmol/L (3.4-5.0); Sodium 131 mmol/L (137-145)
[2022-07-24 12:04] LABS: Appearance Urine Cloudy (Clear); Bilirubin Urine 1+ (Negative); Blood Urine 2+ (Negative); Glucose Urine UA Negative (Negative); Ketones Urine 1+ mg/dL (Negative); Leukocyte Esterase Ur 3+ LEU/UL (Negative); Nitrate Urine Positive (Negative); Protein Urine 2+ mg/dL (Negative); Urobilinogen Urine 0.2 mg/dL (<2.0)
[2022-07-24 12:08] LABS: Bacteria Urine Trace /hpf; Mucus Urine Rare /lpf; Squamous Epithelial Cell Urine Moderate /hpf (Few); WBC Clumps Urine Present /HPF; WBC Urine >75 /hpf
--- NOTE | 2022-07-24 12:08 | ED.NAVMDI ---
HPI - Nausea/Vomiting/Diarrhea General Chief complaint: Nausea/Vomiting/Diarrhea Stated complaint: UTI symptoms Time Seen by Provider: 07/24/22 12:00 History of Present Illness HPI Narrative: Pt presents with fever, body aches including back pain, nausea and vomiting for 3 days. Pt had diarrhea initially but has resolved. Pt denies urinary symptoms. Pt has mild PINK but not any other true URI symptoms. Pt has tested negative for covid and denies exposures. Related Data Home Medications Medication Instructions Recorded Confirmed melatonin 10 mg tablet 10 mg PO HS PRN Insomnia 03/21/22 07/24/22 glimepiride 1 mg tablet 1 mg PO BID 07/24/22 07/24/22 glimepiride 2 mg tablet 2 mg PO BID 07/24/22 07/24/22 metformin 500 mg tablet,extended 1,000 mg PO BID 07/24/22 07/24/22 release 24 hr Allergies Allergy/AdvReac Type Severity Reaction Status Date / Time No Known Allergies Allergy Verified 07/24/22 18:15 Review of Systems Review of Systems: All systems reviewed & are unremarkable except as noted in HPI and below PMFSH Past Medical History Medical History (Updated 07/24/22 @ 15:08 by Manas Glass III, DO) Anxiety Chronic back pain Family History Family History Father Family history non-contributory History of blood clots Diabetes mellitus Hypertension Acute myocardial infarction Mother Hypertension Social History Social History Smoking packs per day: 0 Smoking cigarettes per day: 0.0 Smoking status: Current some day smoker Tobacco type: cigarettes Additional smoking assessment comments: 1 PACK Q3-4 WEEKS, HAVE QUIT IN PAST Alcohol intake: never Substance use: never Substance use type: does not use 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 care concerns: No Exam Const: General: healthy appearing and no acute distress Nutritional Appearance: obese Orientation/consciousness: patient oriented x3 Limitations: no limitations HENMT: Head: normal to inspection General nose exam: Normal external nose present Mouth: Yes Normal oral and palatal mucosa present Throat: posterior oropharynx normal Eyes: Cornea: corneas normal EOM: EOMs intact bilaterally Neck: Neck: normal visual inspection, no lymphadenopathy and no meningeal signs Resp: Effort & Inspection: normal respiratory effort Auscultation: clear to auscultation bilaterally Cardio: Rate: regular rate Rhythm: regular rhythm GI: GI Palp: Yes Soft to palpation Auscultation: normal bowel sounds Skin: General skin exam: normal color Rashes: no rashes Wounds: no wounds Neuro: General: patient oriented x3, moves all extremities, no meningeal signs and no focal motor deficits Cranial nerves: Yes Nystagmus not present Speech: normal speech Extrem: General: normal to inspection and no clubbing, cyanosis or edema Psych: Mental Status: mental status grossly normal Affect: normal affect Attitude: cooperative Course Vital Signs Vital signs: Vital Signs Temperature 98.4 F 07/24/22 10:10 Pulse Rate 114 H 07/24/22 10:10 Respiratory Rate 20 07/24/22 10:10 Blood Pressure 148/87 H 07/24/22 10:10 Pulse Oximetry 98 07/24/22 10:10 Oxygen Delivery Room Air 07/24/22 10:10 Temperature 98.3 F 07/24/22 17:00 Pulse Rate 87 07/24/22 17:00 Respiratory Rate 18 07/24/22 17:00 Blood Pressure 130/87 07/24/22 17:00 Pulse Oximetry 95 07/24/22 17:00 Oxygen Delivery Room Air 07/24/22 18:40 Oxygen Flow Rate 3 07/24/22 13:14 MDM - Nausea/Vomiting/Diarrhea Lab Data Result diagrams: 07/24/22 10:12 07/24/22 10:12 Labs: Lab Results 07/24/22 07/24/22 07/24/22 Range/Units 10:12 10:12 11:56 WBC 14.0 H (4.5-10.0) K/mm3 RBC 4.61 (4.2-5.4) M/mm3 Hgb 12.0 (12.0-15.0) g/dL Hct 38.8 (37.0-47.0) % MCV
[2022-07-24 12:10] LABS: Add Urine Microscopic? YES; Color Urine Dark Yellow (Yellow)
[2022-07-24] MEDS: SODIUM CHLORIDE 0.9% IV 1,000 ML 999 ML IV CONT (12:14)
[2022-07-24] MEDS: KETOROLAC 30 MG/ML VIAL (*BKC) IV PUSH (12:15)
[2022-07-24] MEDS: ONDANSETRON INJ 4 MG/2 ML VIAL IV PUSH ×2 (12:15→23:35)
[2022-07-24 12:26] LABS: Pregnancy On Board Control Positive; Urine Pregnancy Test Negative
[2022-07-24 12:59] LABS: Influenza A QL RT-PCR Negative (Negative); Influenza B QL RT-PCR Negative (Negative); SARS-CoV-2 RNA PCR Negative
--- NOTE | 2022-07-24 13:14 | PC.NURSE ---
Pt noted to have 02 sat in the 70's while sleeping. When pt awaken her sats go into the 90's. Pt states she is supposed to have testing for sleep apnea but hasn't been tested yet.
[2022-07-24] MEDS: MORPHINE SULFATE (*CRX) 4 MG/ML INJ IV PUSH ×2 (15:14→19:41)
[2022-07-24] MEDS: cefTRIAXone 2 GM in SODIUM CHLORIDE 0.9% IV 100 ML 200 ML IVPB (15:23)
--- NOTE | 2022-07-24 16:56 | PC.NURSE ---
This patient, Nancy Roy, was admitted to [facility] Surg Room 311-01 on 07/24/22 @ 1605. Patient/family oriented to hospital policies and general routines including ID bracelet, bed and alarms, visiting hours, pain management, procedures, bathroom and other care routines, personal items, smoking policy, room service/diet, and visiting hours. Information on how to activate the Rapid Response Team has been discussed. Patient/Family are encouraged to report perceived risks to care and to ask questions if they do not understand what they are told or what they should do.
[2022-07-24 17:14] LABS: Glucose Point of Care 163 mg/dl (65-105)
--- NOTE | 2022-07-24 18:00 | PM.IMHP ---
H&P: HPI History of Present Illness Date/Time: 07/24/22 18:00 Chief Complaint: Multiple complaints. Narrative: This is a pleasant 37-year-old female with history of kidney stones, UTIs, GERD, and diabetes who presented to the ED from home for evaluation of multiple complaints. She was seen in the ER 3 days ago with left leg pain and swelling at which time she had a venous Doppler ultrasound which was negative for DVT. Later that day she started having urinary symptoms to include urgency, hesitancy, frequency, and dysuria. Over the past couple of days she has also developed a headache, chills, right back and flank pain, and fever up to 104? F. She has been in bed for the last couple of days and she has not been having much to eat or drink due to ongoing nausea and occasional vomiting. On arrival to the ER today her vital signs were stable. Pertinent labs include a white blood cell count of 14.0, sodium 131, glucose 239, and lipase 19. UA was positive for nitrates, leukocyte esterase, wbc's, and bacteria. She is being admitted in this setting for IV antibiotics for suspected pyelonephritis. At the time my evaluation she has chills and she is complaining of pretty significant right-sided flank pain that she has difficulties describing. She has known cholelithiasis though it does not sound as though she has had many issues with gallbladder attacks. She has had kidney stones in the past and it is difficult for her to say whether not this pain is similar. She does feel a bit short of breath due to the pain being so severe, though she has difficulties describing the pain. It is worse with palpation and movement. Morphine did help with the pain however she did not like it that much as it ?gave me a head kaplan.? Review of Systems Review of Systems: Twelve systems were reviewed. She reports a headache. No sinus congestion or sore throat. No cough. No sick contacts. She denies chest pain. No diarrhea. She had her. Recently for the 1st time in a year and it lasted for approximately 9 days but was not significantly heavy. No vaginal discharge. She has lower extremity edema which is chronic and she had a recent negative ultrasound as above. It does not sound as though she texture glucose often. No blurry vision, polydipsia, or polyuria. Except as documented, all other systems were reviewed and are negative. [facility] Past Medical History Medical History (Updated 07/24/22 @ 22:06 by Samanta Prado PA-C) Anxiety Chronic back pain Morbid obesity with BMI of 60.0-69.9, adult Type 2 diabetes mellitus Hemoglobin A1c was 8.2% on 07/17/2022. Surgical History Surgical History (Updated 07/24/22 @ 22:03 by Samanta Prado PA-C) History of dilation and curettage Family History Family History Father Family history non-contributory History of blood clots Diabetes mellitus Hypertension Acute myocardial infarction Mother Hypertension Social History Social History (Updated 07/24/22 @ 22:04 by Samanta Prado PA-C) Social History: Surrogate medical decision maker: Cheng Encinas, shireen. Code status: Full code. Smoking status: Current some day smoker Tobacco type: cigarettes Additional smoking assessment comments: She smokes cigarettes here or there, perhaps 1 pack every couple of weeks. Alcohol intake: never Substance use: never Substance use type: does not use Additional living arrangements comments: The patient lives with her son in [place]. 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 Spiritual care concerns: No Meds Home Medications and Allergies Home Medications Medication Instructions Recorded Confirmed Type melatonin 10 mg tablet 10 mg PO HS PRN Insomnia 03/21/22 07/24/22 History blood sugar diagnostic (Noster MobileTouch #100 ea 04/13/22 07/24/22 Rx Verio test strips) lancets 30 gauge (OneTouch Delica #100 ea 05/01/22 07/24/22 Rx Plus Lancet
[2022-07-24] MEDS: LACTATED RINGERS 1,000 ML 125 ML IV CONT (18:40)
[2022-07-25] VITALS (9 sets, daily range): BP systolic 133–161; BP diastolic 72–92; PULSE 86–126; RESP 16–24; TEMP 36.8–37.4; O2SAT 91–95
[2022-07-25] MEDS: MORPHINE SULFATE (*CRX) 2 MG/ML INJ IV PUSH ×3 (05:46→20:29)
[2022-07-25] MEDS: LACTATED RINGERS 1,000 ML 125 ML IV CONT ×2 (05:56→17:52)
[2022-07-25] MEDS: ONDANSETRON INJ 4 MG/2 ML VIAL IV PUSH (06:09)
[2022-07-25 06:34] LABS: Basophils Absolute Auto 0.1 K/mm3 (0.0-0.1); Basophils Percent Auto 0.4 % (0.2-1.2); Eosinophils Percent Auto 0.1 % (0-4.4); Hematocrit 36.4 % (37.0-47.0); Hemoglobin 11.1 g/dL (12.0-15.0); Immature Granulocyte Absolute 0.28 K/mm3 (0.00-0.031); Lymphocytes Absolute Auto 0.98 K/mm3 (0.9-3.2); Lymphocytes Percent Auto 7.1 % (18.3-44.2); Mean Corpuscular HGB Conc 30.5 g/dl (32-36); Mean Corpuscular Hemoglobin 25.9 pg (26-34); Mean Platelet Volume 9.6 fl (7.4-10.4); Monocytes Absolute Auto 1.9 K/mm3 (0.1-0.6); Monocytes Percent Auto 13.8 % (2.6-8.5); Neutrophils Absolute Auto 10.5 K/mm3 (1.3-6.7); Neutrophils Percent Auto 76.6 % (45.5-73.1); Nucleated Red Blood Cells Perc 0.1 % (0.0-0.2); Platelet Count Result 277 k/mm3 (150-375); Red Blood Count 4.28 M/mm3 (4.2-5.4); Red Cell Distribution Width 18.5 % (11.5-14.5); White Blood Count 13.7 K/mm3 (4.5-10.0)
[2022-07-25 06:44] LABS: Anion Gap 3 mmol/L (8-16); Blood Urea Nitrogen 11 mg/dL (7-17); Calcium 8.1 mg/dL (8.4-10.2); Carbon Dioxide 31 mmol/L (22-30); Chloride 92 mmol/L (98-107); Estimated CRCL calculation 159 ml/min; Estimated Glomerular Filt Rate > 60; Glucose 221 mg/dL (65-110); Sodium 126 mmol/L (137-145)
[2022-07-25 07:54] LABS: Glucose Point of Care 230 mg/dl (65-105)
[2022-07-25] MEDS: INSULIN ASPART (*BKC) 100 UNITS/ML SUB-Q ×3 (08:27→17:05)
[2022-07-25] MEDS: ENOXAPARIN 40 MG/0.4 ML SYRINGE SUB-Q (08:27)
[2022-07-25 11:19] LABS: Sodium 130 mmol/L (137-145)
[2022-07-25 11:51] LABS: Glucose Point of Care 264 mg/dl (65-105)
--- NOTE | 2022-07-25 13:50 | PM.IMPN ---
Progress Note: A&P Assessment and Plan (1) Pyelonephritis: Code(s): N12 - Tubulo-interstitial nephritis, not specified as acute or chronic Status: Acute Assessment and Plan: presented with flank pain and urinary symptoms CT of the abdomen/pelvis findings consistent with ascending UTI urine cultures pending, await results blood cultures pending continue IV ceftriaxone. await urine culture results and tailor antibiotics accordingly supportive care. Analgesics available as needed for pain (2) Dehydration: Code(s): E86.0 - Dehydration Status: Acute Assessment and Plan: likely secondary to acute infection, nausea, vomiting she has been adequately rehydrated. Will continue with very gentle IV fluid hydration until she is better tolerating p.o. intake. She is tolerating liquids but has not eaten much due to recent emesis (3) Type 2 diabetes mellitus: Code(s): E11.9 - Type 2 diabetes mellitus without complications Status: Acute Assessment and Plan: A1c is 8.2 continue Accu-Cheks, sliding scale insulin, hypoglycemic protocol oral hypoglycemics are on hold at this timeHold oral hypoglycemics as she is not really eating much. Initiate sliding scale insulin, Accu-Cheks, and hypoglycemic protocol. (4) Hyponatremia: Code(s): E87.1 - Hypo-osmolality and hyponatremia Status: Acute Assessment and Plan: improving with hydration. Continue to monitor sodium levels (5) Uterine fibroid: Code(s): D25.9 - Leiomyoma of uterus, unspecified Status: Acute Assessment and Plan: CT of the abdomen/pelvis showed a 0.4 cm pedunculated fibroid will need outpatient [facility] follow-up Subjective Date/time seen: 07/25/22 13:50 Interval history: date of service: 07/25/2022 Nancy Roy is a 37-year-old female with a history of type 2 diabetes mellitus, chronic back pain, anxiety, and obesity who is seen in follow-up for pyelonephritis. She is starting to feel little bit better today but still having pretty significant pain. She describes right upper quadrant pain that radiates to the right flank and back and when it is particularly severe, into the epigastric region sternum. She also has some mild left upper quadrant pain that also radiates to the left flank Aiden back. She endorses 1 episode of hematuria this morning. Otherwise she states her urine has been dark and cloudy. Yesterday she was having issues with urgency but this has resolved. She denies frequency. She endorses chills and sweats. No fevers. She has had difficulty tolerating p.o. intake and states that she vomited after eating breakfast. She endorses nausea but states some improvement with antiemetics. She is occasionally lightheaded upon standing but if she takes her time, the symptoms improve or resolve. She endorses fatigue. Denies shortness breath, cough, chest pain. States her last menstrual period was last week. Prior to that, she had not had a menstrual period for several months. Review of Systems Review of Systems: All systems reviewed & are unremarkable except as noted in HPI and below Exam Narrative: General: obese, well-appearing 37-year-old female, sitting up in bed , comfortable, NARD Neuro: awake, alert and oriented x4, speech clear, no focal neuro deficits noted HEENMT: normocephalic, atraumatic, EOMI Respiratory: clear to auscultation bilaterally, nonlabored breathing Cardio: regular rate, regular rhythm with S1-S2 Abdomen: obese, normoactive bowel sounds, soft, tender to palpation in right upper quadrant : bilateral CVA tenderness Extremities: no edema, erythema, or tenderness to palpation Skin: no rashes or lesions, warm and dry Psych: appropriate mood and affect, judgment and insight intact Objective Data Vital Signs Vital Signs: Vital Signs - 24 hr 07/24/22 13:55 07/24/22 14:00 07/24/22 14:16 Temp
[2022-07-25 16:44] LABS: Glucose Point of Care 213 mg/dl (65-105)
[2022-07-25] MEDS: ACETAMINOPHEN 325 MG TABLET 650 MG PO (17:53)
[2022-07-25 21:49] LABS: Glucose Point of Care 254 mg/dl (65-105)
[2022-07-25] MEDS: KETOROLAC 30 MG/ML VIAL (*BKC) IV PUSH (22:13)
[2022-07-25] MEDS: LORATADINE 5 MG TABLET PO (22:14)
[2022-07-25] MEDS: LACTATED RINGERS 1,000 ML 100 ML IV CONT (22:21)
[2022-07-26] VITALS (9 sets, daily range): BP systolic 125–152; BP diastolic 82–109; PULSE 80–106; RESP 16–20; TEMP 36.9–37; O2SAT 92–95
[2022-07-26] MEDS: MORPHINE SULFATE (*CRX) 2 MG/ML INJ IV PUSH ×3 (01:30→06:51)
[2022-07-26] MEDS: LACTATED RINGERS 1,000 ML 100 ML IV CONT ×2 (03:52→12:51)
[2022-07-26 06:22] LABS: Hematocrit 36.3 % (37.0-47.0); Hemoglobin 10.9 g/dL (12.0-15.0); Mean Corpuscular Hemoglobin 26.3 pg (26-34); Mean Corpuscular Volume 87.5 fl (80-100); Mean Platelet Volume 9.5 fl (7.4-10.4); Platelet Count Result 255 k/mm3 (150-375); Red Blood Count 4.15 M/mm3 (4.2-5.4); Red Cell Distribution Width 18.4 % (11.5-14.5); White Blood Count 11.7 K/mm3 (4.5-10.0)
[2022-07-26 06:32] LABS: Anion Gap 10 mmol/L (8-16); Blood Urea Nitrogen 12 mg/dL (7-17); Calcium 8.5 mg/dL (8.4-10.2); Carbon Dioxide 33 mmol/L (22-30); Chloride 89 mmol/L (98-107); Estimated CRCL calculation 160 ml/min; Estimated Glomerular Filt Rate > 60; Glucose 241 mg/dL (65-110); Potassium 3.9 mmol/L (3.4-5.0); Sodium 132 mmol/L (137-145)
[2022-07-26] MEDS: HYDROcodone/acetaminophen (*CRX) 5-325 MG TABLET 1 TAB PO ×3 (06:43→23:30)
[2022-07-26 07:32] LABS: Glucose Point of Care 233 mg/dl (65-105)
[2022-07-26] MEDS: INSULIN ASPART (*BKC) 100 UNITS/ML SUB-Q ×3 (08:22→16:35)
[2022-07-26] MEDS: ENOXAPARIN 40 MG/0.4 ML SYRINGE SUB-Q (08:23)
[2022-07-26 11:25] LABS: Glucose Point of Care 223 mg/dl (65-105)
--- NOTE | 2022-07-26 14:39 | PM.IMPN ---
Progress Note: A&P Assessment and Plan (1) Pyelonephritis: Code(s): N12 - Tubulo-interstitial nephritis, not specified as acute or chronic Status: Acute Assessment and Plan: presented with flank pain and urinary symptoms CT of the abdomen/pelvis findings consistent with ascending UTI urine cultures with growth of E coli, sensitive to ceftriaxone continue IV ceftriaxone, started on 07/24/22 blood cultures pending, negative to date supportive care. Analgesics available as needed for pain hopeful discharge home tomorrow if continued improvement (2) Dehydration: Code(s): E86.0 - Dehydration Status: Acute Assessment and Plan: Resolved. likely secondary to acute infection, nausea, vomiting she has been adequately rehydrated And is now tolerating p.o. intake (3) Type 2 diabetes mellitus: Code(s): E11.9 - Type 2 diabetes mellitus without complications Status: Acute Assessment and Plan: A1c is 8.2 continue Accu-Cheks, high-dose sliding scale insulin, hypoglycemic protocol resume home glimepiride hold metformin given recent contrast CT consider addition of scheduled NovoLog if blood sugars remaining elevated (4) Hyponatremia: Code(s): E87.1 - Hypo-osmolality and hyponatremia Status: Acute Assessment and Plan: improving with hydration. 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 she has had improvement in her abdominal pain today. Her flank pain has lessened. Her main complaint at this time is a severe headache. She also complains of chronic low back pain. She has been able to tolerate keeping down food and liquids today. She was able to eat her whole breakfast. She has had no episodes of emesis. Still with occasional nausea but overall much improved. Denies shortness breath, cough, chest pain, palpitations. No dizziness, lightheadedness, weakness. She has no additional concerns at this time. She does not feel that she is quite ready to go home today. She woke up in the middle of the night last night with pretty significant pain, therefore she wants to make sure she can get through the whole night tonight. Review of Systems Review of Systems: All systems reviewed & are unremarkable except as noted in HPI and below Exam Narrative: General: obese, well-appearing 37-year-old female, sitting up in bed , comfortable, NARD Neuro: awake, alert and oriented x4, speech clear, no focal neuro deficits noted HEENMT: normocephalic, atraumatic, EOMI Respiratory: clear to auscultation bilaterally, nonlabored breathing Cardio: regular rate, regular rhythm with S1-S2 Abdomen: obese, normoactive bowel sounds, soft, suprapubic tenderness : no CVA tenderness Extremities: no edema, erythema, or tenderness to palpation Skin: no rashes or lesions, warm and dry Psych: appropriate mood and affect, judgment and insight intact Objective Data Vital Signs Vital Signs: Vital Signs - 24 hr 07/25/22 16:00 07/25/22 21:57 07/25/22 20:00 Temperature 98.3 F Pulse Rate 91 86 86 Respiratory Rate 20 Blood Pressure 141/82 H Pulse Oximetry 91 Oxygen Delivery 07/25/22 20:00 07/26/22 00:00 07/26/22 04:00 Temperature Pulse Rate 80 88 Respiratory Rate Blood Pressure Pulse Oximetry Oxygen Delivery Room Air 07/26/22 06:00 07/26/22 08:25 07/26/22 08:25 Temperature 98.6 F Pulse Rate 95
[2022-07-26 16:33] LABS: Glucose Point of Care 207 mg/dl (65-105)
[2022-07-26] MEDS: GLIMEPIRIDE 1 MG TABLET 3 MG PO (16:36)
[2022-07-26] MEDS: DOCUSATE SODIUM 100 MG CAPSULE PO (17:44)
[2022-07-26] MEDS: IBUPROFEN 600 MG TABLET PO (20:28)
[2022-07-26 21:17] LABS: Glucose Point of Care 170 mg/dl (65-105)
[2022-07-27] VITALS (7 sets, daily range): BP systolic 122–148; BP diastolic 76–77; PULSE 81–96; RESP 20; TEMP 36.4; O2SAT 100
[2022-07-27] MEDS: IBUPROFEN 600 MG TABLET PO (02:37)
[2022-07-27 06:44] LABS: Hematocrit 37.1 % (37.0-47.0); Hemoglobin 11.2 g/dL (12.0-15.0); Mean Corpuscular HGB Conc 30.2 g/dl (32-36); Mean Corpuscular Hemoglobin 25.9 pg (26-34); Mean Corpuscular Volume 85.9 fl (80-100); Platelet Count Result 264 k/mm3 (150-375); Red Blood Count 4.32 M/mm3 (4.2-5.4); Red Cell Distribution Width 18.2 % (11.5-14.5); White Blood Count 10.6 K/mm3 (4.5-10.0)
[2022-07-27 07:00] LABS: Anion Gap 8 mmol/L (8-16); Blood Urea Nitrogen 12 mg/dL (7-17); Calcium 8.1 mg/dL (8.4-10.2); Carbon Dioxide 35 mmol/L (22-30); Chloride 94 mmol/L (98-107); Estimated CRCL calculation 201 ml/min; Estimated Glomerular Filt Rate > 60; Glucose 175 mg/dL (65-110); Potassium 3.9 mmol/L (3.4-5.0); Sodium 137 mmol/L (137-145)
[2022-07-27 07:40] LABS: Glucose Point of Care 183 mg/dl (65-105)
[2022-07-27] MEDS: ENOXAPARIN 40 MG/0.4 ML SYRINGE SUB-Q (08:43)
[2022-07-27] MEDS: GLIMEPIRIDE 1 MG TABLET 3 MG PO ×2 (08:43→16:45)
--- NOTE | 2022-07-27 10:40 | PM.DS ---
DS: Admitting Diagnosis Discharge Date 07/27/2022 Admitting Diagnosis pyelonephritis DS: Discharge Diagnosis Discharge Diagnosis (1) Pyelonephritis: Code(s): N12 - Tubulo-interstitial nephritis, not specified as acute or chronic Status: Acute Assessment and Plan: presented with flank pain and urinary symptoms CT of the abdomen/pelvis findings consistent with ascending UTI urine cultures with growth of E coli, sensitive to ceftriaxone received IV ceftriaxone during admission and will continue cefdinir outpatient to complete full course of antibiotics. blood cultures negative to date, final cultures will be monitored. (2) Dehydration: Code(s): E86.0 - Dehydration Status: Acute Assessment and Plan: Resolved. likely secondary to acute infection, nausea, vomiting she was adequately rehydrated and tolerating p.o. intake (3) Type 2 diabetes mellitus: Code(s): E11.9 - Type 2 diabetes mellitus without complications Status: Acute Assessment and Plan: A1c is 8.2 Managed during admission with Accu-Cheks, sliding scale insulin. Home metformin was held during admission as patient had contrast CT. 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 On presentation to the ED, her vital signs were stable, she was afebrile, white blood cell count was 14, glucose 239, additional laboratory workup unremarkable, urinalysis grossly abnormal, and CT of the abdomen/pelvis showed findings consistent with pyelonephritis. She was admitted to the hospitalist service for further evaluation and management. Please see above for further details. She was treated with IV antibiotics with overall symptomatic improvement. Urine cultures reviewed. Given improvement of the patient's pain and urinary symptoms, she was able to be transition to p.o. antibiotics based on susceptibility report which she will continue as an outpatient. She will follow-up with her primary care provider in 1 week. She was determined to no longer require inpatient care and was discharged in hemodynamically stable condition on 07/27/2022. Discussed with the patient worrisome signs and symptoms for which to return and she was educated on her medications. Status at Discharge Functional status at discharge: independent ambulation Overall status at discharge: patient is progressing back to baseline Time Spent with Patient Time attestation: Total time spent providing and/or coordinating discharge services: 39 minutes Time spent: Greater than 30 minutes Exam Narrative: General: obese, well-appearing 37-year-old female, sitting up in bed , comfortable, NARD Neuro: awake, alert and oriented x4, speech clear, no focal neuro deficits noted HEENMT: normocephalic, atraumatic, EOMI Respiratory: clear to auscultation bilaterally, nonlabored breathing Cardio: regular rate, regular rhythm with S1-S2 Abdomen: obese, normoactive bowel sounds, soft, right flank minimally tender to palpation : no CVA tenderness Extremities: no edema, erythema, or tenderness to palpation Skin: no rashes or lesion
[2022-07-27] MEDS: HYDROcodone/acetaminophen (*CRX) 5-325 MG TABLET 1 TAB PO ×2 (11:10→18:55)
[2022-07-27 11:27] LABS: Glucose Point of Care 193 mg/dl (65-105)
[2022-07-27 16:24] LABS: Glucose Point of Care 239 mg/dl (65-105)
[2022-07-27] MEDS: INSULIN ASPART (*BKC) 100 UNITS/ML SUB-Q (16:44)
== END 2022-07-27 21:55 | disposition home or self-care (01) ==
LOC: ANHED 15:08 → ANH3MEDSUR 15:32
PROVIDERS: Emergency Medicine; Nurse Practitioner Family; Physician Assistant; Admitting Provider Chiropractor; Emergency Provider Emergency Medicine; PCP Family Medicine; Visit Provider Internal Medicine
DX: N12 Tubulo-interstitial nephritis, not specified as acute or chronic (principal); E86.0 Dehydration; E11.9 Type 2 diabetes mellitus without complications; E87.1 Hypo-osmolality and hyponatremia; D25.9 Leiomyoma of uterus, unspecified; M79.10 Myalgia, unspecified site; F41.9 Anxiety disorder, unspecified; K80.20 Calculus of gallbladder without cholecystitis without obstruction; K21.9 Gastro-esophageal reflux disease without esophagitis; E66.01 Morbid (severe) obesity due to excess calories; Z68.44 Body mass index [BMI] 60.0-69.9, adult; Z20.822 Contact with and (suspected) exposure to COVID-19; M54.9 Dorsalgia, unspecified; F17.210 Nicotine dependence, cigarettes, uncomplicated; Z79.84 Long term (current) use of oral hypoglycemic drugs; Z79.899 Other long term (current) drug therapy; Z83.3 Family history of diabetes mellitus
CPT/HCPCS: 36415; 71046; 74177; 80048; 80053; 81001; 81025; 82948; 83690; 83735; 84295; 85025; 85027; 87040; 87077; 87086; 87186; 87502; 96361; 96365; 96367; 96372; 96375; 96376; 99285; A9270; C9803; G0378; G0379; J0131; J0696; J1650; J1815; J1885; J2270; J2405; J7030; J7120; Q9967; U0003; U0005

== ENCOUNTER 2022-09-17 15:47 | Outpatient (CLI) | payer OTHER, SELFPAY ==
--- NOTE | ~2022-09-17 | MR_ITS ---
EXAMINATION: MR lumbar spine wo con DATE: 09/17/2022 16:46 INDICATION: Low back pain TECHNIQUE: Magnetic resonance imaging (MRI) of the lumbar spine was performed without intravenous con trast. Sequences included sagittal T2-weighted FSE, sagittal T2-weighted FS FSE, sagittal T1-weighted FSE, and axial T2-weighted FSE. COMPARISON: Lumbar spine radiographs dated 07/17/2022 FINDINGS: 2 mm retrolisthesis T12 on L1 and L5 on S1. Vertebral body heights are normal. Normal marrow signal. Disc desiccation and mild disc height loss at L4-L5. The conus medullaris terminates at L1-L2. There is normal signal in the caudal spinal cord. Paravertebral soft tissues are unremarkable. The followi ng disc levels are specifically discussed: T12-L1: The disc does not extend beyond the more posterior T12 endplate margin. There is mild bilater al facet joint osteoarthritis. There is no neural foraminal stenosis. There is no central canal steno sis. L1-L2: The disc does not extend beyond the endplate margin. There is mild bilateral facet joint osteo arthritis. There is no neural foraminal stenosis. There is no central canal stenosis. L2-L3: The disc does not extend beyond the endplate margin. There is mild to moderate bilateral facet joint osteoarthritis. There is no neural foraminal stenosis. There is no central canal stenosis. L3-L4: The disc does not extend beyond the endplate margin. There is moderate bilateral facet joint o steoarthritis. There is mild left and minimal right neural foraminal stenosis. There is no central ca nal stenosis. L4-L5: The disc does not extend beyond the endplate margin. There is moderate left and moderate to se daphney right facet joint osteoarthritis. There is mild bilateral neural foraminal stenosis. There is no central canal stenosis. L5-S1: The disc does not extend beyond the endplate margin. There is mild right and moderate to sever e left facet joint osteoarthritis. There is no neural foraminal stenosis. There is no central canal s tenosis. IMPRESSION: 1. Mild lumbar spondylosis. Reviewed, dictated and finalized at location A. IMPRESSION: 1. Mild lumbar spondylosis.
== END 2022-09-17 15:48 | disposition home or self-care (01) ==
PROVIDERS: PCP Family Medicine; Visit Provider Family Medicine
DX: M47.896 Other spondylosis, lumbar region (principal)
CPT/HCPCS: 72148

== ENCOUNTER 2023-01-19 15:35 | Emergency (ER) | payer OTHER, SELFPAY ==
[2023-01-19 15:41] VITALS: BP 148/94; PULSE 98; RESP 20; TEMP 36.1; O2SAT 100
[2023-01-19 16:05] VITALS: BP 148/94
--- NOTE | 2023-01-19 16:17 | ED.FEMALEGU ---
HPI - Female Genitourinary General Chief complaint: Back Pain/Injury Stated complaint: Possible UTI Time Seen by Provider: 01/19/23 16:03 Source: patient Mode of arrival: ambulatory Limitations: no limitations History of Present Illness HPI Narrative: Patient presents today complaining of 2 day history of dark and cloudy urine with mild left mid back pain. Denies dysuria, hematuria, abdominal pain, fever, nausea or vomiting, sweats or chills. One week ago she started her menstrual cycle that lasted 5 days. She had not had a menstrual cycle for 1 and half years, and was unsure at 1st whether or not the blood was coming from her bladder or vagina. She later determined that it was of vaginal origin. She has not tried any [id number] medication for for back pain. She does have chronic back pain, but states it is typically lower and more midline. Related Data Home Medications Medication Instructions Recorded Confirmed melatonin 10 mg tablet 10 mg PO HS PRN Insomnia 03/21/22 01/19/23 Allergies Allergy/AdvReac Type Severity Reaction Status Date / Time No Known Allergies Allergy Verified 01/19/23 15:49 Review of Systems Review of Systems: CONSTITUTIONAL: Denies body aches, fever, chills, or sweats. EYES: Denies visual changes, redness, or discharge. ENT: Denies rhinorrhea, congestion, sore throat, or otalgia. CARDIOVASCULAR: Denies chest pain, palpitations, or edema. RESPIRATORY: Denies cough or dyspnea. GASTROINTESTINAL: Denies abdominal pain, nausea, vomiting, or diarrhea. GENITOURINARY: Denies dysuria or hematuria.+ dark and cloudy urine SKIN: Denies rash, itching, or wounds. MUSCULOSKELETAL: Denies joint pain, or myalgia.+ left midback pain NEUROLOGIC: Denies headache, numbness, tingling, or weakness. PSYCH: Denies depression or anxiety. [facility] Past Medical History Medical History Anxiety Cellulitis Chronic back pain Insomnia Lumbar spondylosis Morbid obesity with BMI of 60.0-69.9, adult Type 2 diabetes mellitus Hemoglobin A1c was 8.2% on 07/17/2022. Surgical History Surgical History History of dilation and curettage Family History Family History Father Family history non-contributory History of blood clots Diabetes mellitus Hypertension Acute myocardial infarction Mother Hypertension Social History Social History Social History: Surrogate medical decision maker: Cheng Encinas, shireen. Code status: Full code. Smoking status: Current some day smoker Tobacco type: cigarettes Additional smoking assessment comments: She smokes cigarettes here or there, perhaps 1 pack every couple of weeks. Alcohol intake: never Substance use: never Substance use type: does not use Living arrangements: with family Additional living arrangements comments: The patient lives with her son in [place]. 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 Spiritual care concerns: No Comments At time of signature, I have reviewed and agree with nursing past medical, surgical, social and family history unless otherwise noted. Please see nursing chart for further information. There is no relevant family history pertinent to the presenting complaint Exam Narrative: GENERAL: Well-appearing, well-nourished, and in no acute distress. HEAD: Normocephalic, atraumatic. EYES: EOMI. No redness or drainage. Conjunctivae normal. ENT: Mucous membranes pink and moist. NECK: Normal AROM. CHEST: No respiratory distress. Patient localizes pain to the left lateral mid back. EXTREMITIES: Normal range of motion. No edema. SKIN: Warm, dry, no rash. Capillary refill normal. Normal skin turgor. NEURO: No focal deficits. Alert an
== END 2023-01-19 16:22 | disposition home or self-care (01) ==
PROVIDERS: Emergency Provider Nurse Practitioner; PCP Family Medicine
DX: M54.6 Pain in thoracic spine (principal); F17.210 Nicotine dependence, cigarettes, uncomplicated; E11.9 Type 2 diabetes mellitus without complications; Z79.84 Long term (current) use of oral hypoglycemic drugs; E66.01 Morbid (severe) obesity due to excess calories; Z68.44 Body mass index [BMI] 60.0-69.9, adult; M47.816 Spondylosis without myelopathy or radiculopathy, lumbar region
CPT/HCPCS: 81003; 87086; 87088; 99213; G0463

== ENCOUNTER 2023-07-27 15:09 | Emergency (ER) | payer OTHER, SELFPAY ==
[2023-07-27 16:08] VITALS: BP 131/72; PULSE 89; RESP 18; TEMP 36.3; O2SAT 97
--- NOTE | 2023-07-27 16:48 | ED.URI ---
HPI - URI/Sore Throat General Chief Complaint: Upper Respiratory Infection Stated Complaint: flu like symptoms Time Seen by Provider: 07/27/23 16:37 Source: patient and RN notes reviewed Mode of arrival: ambulatory Limitations: no limitations History of Present Illness HPI Narrative: Patient presents today with a 4 day history of fever up to 101.7, cough and wheezing, post-tussive vomiting, congestion, rhinorrhea, headache, sore throat. She has been trying Senait-Thornton, TheraFlu, vitamin-D, vitamin-C, Zicam without relief. He took 2 home COVID-19 test that were both negative. States son was sick with similar symptoms, but has since resolved completely. History of diabetes. States blood sugars have recently been very well controlled. Related Data Home Medications Medication Instructions Recorded Confirmed semaglutide 2 mg/dose (8 mg/3 mL) 2 mg subcut WEEKLY 07/27/23 07/27/23 subcutaneous pen injector (Ozempic) Allergies Allergy/AdvReac Type Severity Reaction Status Date / Time No Known Allergies Allergy Verified 07/27/23 16:31 Review of Systems Review of Systems: CONSTITUTIONAL: Denies body aches, chills, or sweats.+ fever EYES: Denies visual changes, redness, or discharge. ENT: Denies otalgia.+ congestion, rhinorrhea, sore throat CARDIOVASCULAR: Denies chest pain, palpitations, or edema. RESPIRATORY: + cough, wheezing GASTROINTESTINAL: Denies abdominal pain, nausea, or diarrhea.+ post-tussive vomiting GENITOURINARY: Denies dysuria or hematuria. SKIN: Denies rash, itching, or wounds. MUSCULOSKELETAL: Denies back pain, joint pain, or myalgia. NEUROLOGIC: Denies numbness, tingling, or weakness.+ headache PSYCH: Denies depression or anxiety. [facility] Past Medical History Medical History ADHD Anxiety Cellulitis Chronic back pain Insomnia Lumbar spondylosis Morbid obesity with BMI of 60.0-69.9, adult Right knee pain Type 2 diabetes mellitus Hemoglobin A1c was 8.2% on 07/17/2022. UTI (urinary tract infection) Surgical History Surgical History History of dilation and curettage Family History Family History Father Family history non-contributory History of blood clots Diabetes mellitus Hypertension Acute myocardial infarction Mother Hypertension Social History Social History Social History: Surrogate medical decision maker: Cheng Encinas, shireen. Code status: Full code. Smoking status: Current some day smoker Tobacco type: cigarettes Additional smoking assessment comments: She smokes cigarettes here or there, perhaps 1 pack every couple of weeks. Alcohol intake: never Substance use: never Substance use type: does not use Living arrangements: with family Additional living arrangements comments: The patient lives with her son in [place]. 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 Spiritual care concerns: No Comments At time of signature, I have reviewed and agree with nursing past medical, surgical, social and family history unless otherwise noted. Please see nursing chart for further information. There is no relevant family history pertinent to the presenting complaint Exam Narrative: GENERAL: Mildly ill appearing, well-nourished, and in no acute distress. HEAD: Normocephalic, atraumatic. EYES: EOMI. No redness or drainage. Conjunctivae normal. ENT: Mucous membranes pink and moist. Nares congested with rhinorrhea. TMs normal bilaterally. Throat normal. Uvula midline. NECK: Normal AROM. Supple. No lymphadenopathy. CHEST: No respiratory distress. Slight wheeze in the left upper lobe, otherwise clear. HEART: Regular rate and rhythm. No murmur appreciated. Normal peripher
== END 2023-07-27 17:00 | disposition home or self-care (01) ==
PROVIDERS: Emergency Provider Nurse Practitioner; PCP Family Medicine
DX: J40 Bronchitis, not specified as acute or chronic (principal); J06.9 Acute upper respiratory infection, unspecified; F17.210 Nicotine dependence, cigarettes, uncomplicated; M47.816 Spondylosis without myelopathy or radiculopathy, lumbar region; E66.01 Morbid (severe) obesity due to excess calories; Z68.43 Body mass index [BMI] 50.0-59.9, adult; E11.9 Type 2 diabetes mellitus without complications; Z79.84 Long term (current) use of oral hypoglycemic drugs; F90.9 Attention-deficit hyperactivity disorder, unspecified type; F41.9 Anxiety disorder, unspecified
CPT/HCPCS: 99213; G0463

== ENCOUNTER 2023-08-09 15:30 | Outpatient (RCR) | payer OTHER, SELFPAY ==
--- NOTE | 2023-05-24 17:11 | PTOPEVAL1 ---
Assessment and note entered by Leola Garcia, PT Evaluation Information Assessment Status Evaluation Diagnosis right knee pain, low back pain Onset R knee - 6 months, back pain worsened ~ a year ago Subjective Information Can straightening really slowly but has discomfort inner knee, sit>stand increases pain, stretching slowly, prolonged positions. Worse in the evenings and in the middle of the night. Has had back pain started getting stiff about 7 years ago. Has tried chiropractic at the time this helped. Has always worked extreme hours for multiple jobs and recently started decreasing work significantly and noted increased pain in back when this started. 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 Goes into home to assist with ADLs, mobility, chores, lifting and transferring patients. Goals: would like to be able to go for a walk, go up and down stairs without feeling like an 81 y/o . Reported Pain Level Pain Score 1,3: Self Report Assessment PT Clinical Summary Pt presents with complaints of right knee pain and back pain. Evaluation shows defictis in alignment in ankle knee complex, possible leg length difference, and poor strength in core and LEs. Pt reports suggestive of inflammatory process in the knee which she was educated on cryotherapy for to begin her home program. She was also educated on appropriate shoe novoa for improved knee alignment and reduction of pain. Pt will benefit from therapy to address deficits, improve strength and alignment, and ultimately reduce pain for improved quality of life. Plan of Care Interventions Check Out for Orthotic/Pr,Electrical Stimulation, Gait Training,Hot Pack/Cold Pack,Manual Therapy, Neuro Re-education,Patient/Caregiver Educati, Therapeutic Activities,Therapeutic Exercise,Self- Care/Home Management,Ultrasound PT Services Indicated Yes Treatment Frequency and 2x weekly x 4 weeks Duration These treatments will address the objective and functional deficits as defined above. The patient will be advanced safely and appropriately in order for the patient to progress towards his/her prior level of function. Additional exercises will be introduced and as well as a comprehensive home exercise program upon
--- NOTE | 2023-05-24 17:11 | OPREHPOC ---
Outpatient Therapy Plan of Care This is a Multidisciplinary Plan of Care that may contain components documented by all disciplines (PT, OT, and ST.) PT Problem 1 PT Problem #1 Knowledge Deficit PT Goal 1 Goal Pt will be independent in home exercise program Target Visit 8 PT Goal 2 Goal Pt will demo appropriate shoe novoa for approrpiate ankle and knee alignment Target Visit 8 PT Problem 2 PT Problem #2 Pain PT Goal 1 Goal Pt will report lowest pain rating at knee 0/10 Target Visit 8 PT Goal 2 Goal Pt will report lowest pain rating of back at 0/10 Target Visit 8 PT Problem 3 PT Problem #3 Pain PT Goal 1 Goal Pt will report highest pain rating of knee at 3/10 Target Visit 16 PT Goal 2 Goal Pt will report highest pain rating of back at 3/10 Target Visit 16 PT Problem 4 PT Problem #4 Impaired Strength PT Goal 1 Goal Pt will demo BLE glute med and max strength at 4+/ 5 Target Visit 16 PT Goal 2 Goal Pt will demo lower abdominal strength at 4/5
--- NOTE | 2023-06-11 16:26 | PTOPPROG ---
Assessment and note entered by Leola Garcia, PT Assessment Status Progress Report Diagnosis right knee pain, low back pain Onset R knee - 6 months, back pain worsened ~ a year ago Subjective Information Pt reports back was better but then had problems this past Saturday. Is not sure if is related to her period cycle or no. Knees feelin better with new shoes I don't hear the rice krispies sound as bad when walking. No popping as bad. Achy all day. Reports intensity of stiffness after sitting is not any less, hsa not changed but does seem to take longer to get this way. Takes longer to get to the point of pain than previously but cont to have the pain States is sleeping better. States was able to reduce medication for pain. Perceived improvement: Low back: 50-60% improved Knee: 20-25% Assessment PT Clinical Summary Pt reports significant improvement in low back pain of 50-60%, only 20-25% on her knee. She does report greater improvement during the day especially with new shoes. Slight improvement in gluteal strength. Is early in therapy, only on fourth visit. Would benefit from continued therapy to continue improvement, and decrease pain. Plan of Care Interventions Check Out for Orthotic/Pr,Electrical Stimulation, Gait Training,Hot Pack/Cold Pack,Manual Therapy, Neuro Re-education,Patient/Caregiver Educati, Therapeutic Activities,Therapeutic Exercise,Self- Care/Home Management,Ultrasound PT Services Indicated Yes Treatment Frequency and 2x weekly x 4 weeks Duration These treatments will address the objective and functional deficits as defined above. The patient will be advanced safely and appropriately in order for the patient to progress towards his/her prior level of function. Additional exercises will be introduced and as well as a comprehensive home exercise program upon discharge, if needed, ?to ensure carryover of functional gains achieved in the clinic. This treatment plan has been reviewed and agreement upon by the patient.
--- NOTE | 2023-06-25 12:27 | PCPTNOTE ---
Clinic called & cancelled scheduled appointment this date due to insurance policy change did not provide authorization for treatment.
--- NOTE | 2023-07-15 16:29 | PTOPPROG ---
Assessment and note entered by Leola Garcia, PT Assessment Status Progress Report Diagnosis right knee pain, low back pain Onset R knee - 6 months, back pain worsened ~ a year ago Subjective Information States is sleeping better. States was able to reduce medication for pain. Perceived improvement: Low back: 70% improved; not in bed in bed, is not in pain for a while after standing. Knee: 70% improved overall; stiffness is present but pain is way down Assessment PT Clinical Summary Pt reports significant improvement in low back pain of 50-60%, only 20-25% on her knee. She does report greater improvement during the day especially with new shoes. Slight improvement in gluteal strength. Is early in therapy, only on fourth visit. Would benefit from continued therapy to continue improvement, and decrease pain. Plan of Care Interventions Check Out for Orthotic/Pr,Electrical Stimulation, Gait Training,Hot Pack/Cold Pack,Manual Therapy, Neuro Re-education,Patient/Caregiver Educati, Therapeutic Activities,Therapeutic Exercise,Self- Care/Home Management,Ultrasound PT Services Indicated Yes Treatment Frequency and 2x weekly x 4 weeks Duration These treatments will address the objective and functional deficits as defined above. The patient will be advanced safely and appropriately in order for the patient to progress towards his/her prior level of function. Additional exercises will be introduced and as well as a comprehensive home exercise program upon discharge, if needed, ?to ensure carryover of functional gains achieved in the clinic. This treatment plan has been reviewed and agreement upon by the patient.
--- NOTE | 2023-07-15 16:30 | OPREHPOC ---
Outpatient Therapy Plan of Care This is a Multidisciplinary Plan of Care that may contain components documented by all disciplines (PT, OT, and ST.) PT Problem 1 PT Problem #1 Knowledge Deficit PT Goal 1 Goal Pt will be independent in home exercise program Target Visit 8 Progress Met PT Goal 2 Goal Pt will demo appropriate shoe novoa for approrpiate ankle and knee alignment Target Visit 8 Progress Met PT Problem 2 PT Problem #2 Pain PT Goal 1 Goal Pt will report lowest pain rating at knee 0/10 Target Visit 8 Progress Met PT Goal 2 Goal Pt will report lowest pain rating of back at 0/10 Target Visit 8 Progress Met PT Problem 3 PT Problem #3 Pain PT Goal 1 Goal Pt will report highest pain rating of knee at 3/10 Target Visit 16 Progress Partially Met Comment Progressing PT Goal 2 Goal Pt will report highest pain rating of back at 3/10 Target Visit 16 Progress Partially Met Comment Progressing PT Problem 4 PT Problem #4 Impaired Strength PT Goal 1 Goal Pt will demo BLE glute med and max strength at 4+/ 5 Target Visit 16 Progress Partially Met Comment Glute max 4/5, glute med unchanged PT Goal 2 Goal Pt will demo lower abdominal strength at 4/5 Progress Not Met
--- NOTE | 2023-08-09 16:36 | PTOPPROG ---
Assessment and note entered by Leola Garcia, PT Assessment Status Progress Report Diagnosis right knee pain, low back pain Onset R knee - 6 months, back pain worsened ~ a year ago Subjective Information Has not had severe pains in either knee or low back Reports stairs are a lot better . Can get up and down out of the chair without pain, do dishes without pain Percieved improvement: Low back: 80% improved; still has 20-30 minutes then locks up. Knee: 90% Reports still tightens up Assessment PT Clinical Summary Pt demo's improved strength in core and hip musculature, improved areas of tone and tenderness , and reports significant functional and pain related improvements overall. Pt has had a decreased frequency of visits and overall increased duration of authorized visits due to lack of therapy staff, but has been consistent in attending her scheduled appointments and applying therapist instructions to improve pain including appropriate shoe novoa and heel lift. Pt has met further watermaster goals today for pain. Only remaining goals are related to her overall strength. Thus patient would benefit from continued therapy of 4 visits used as needed in the next two months to increase intensity of strengthening activities and prepare home program for patient to continue improvement and maintain strength and function independently. Plan of Care Interventions Check Out for Orthotic/Pr,Electrical Stimulation, Gait Training,Hot Pack/Cold Pack,Manual Therapy, Neuro Re-education,Patient/Caregiver Educati, Therapeutic Activities,Therapeutic Exercise,Self- Care/Home Management,Ultrasound PT Services Indicated Yes Treatment Frequency and 2x weekly x 4 weeks Duration These treatments will address the objective and functional deficits as defined above. The patient will be advanced safely and appropriately in order for the patient to progress towards his/her prior level of function. Additional exercises will be introduced and as well as a comprehensive home exercise program upon discharge, if needed, ?to ensure carryover of functional gains achieved in the clinic. This treatment plan has been reviewed and agreement upon by the patient.
== END 2023-08-20 11:26 | disposition still patient (30) ==
LOC: ANHHIPT 15:30
PROVIDERS: PCP Family Medicine; Visit Provider Family Medicine
DX: M25.561 Pain in right knee (principal)
CPT/HCPCS: 97014; 97110; 97140; 97162; 97750; G0283

== ENCOUNTER 2023-09-06 15:30 | Outpatient (RCR) | payer OTHER, SELFPAY ==
--- NOTE | 2023-09-06 16:35 | PTOPDC ---
Assessment and note entered by Leola Garcia, PT Assessment Status Discharge Diagnosis right knee pain, low back pain Onset R knee - 6 months, back pain worsened ~ a year ago Subjective Information Pt reports knee pain and low back pain being 90% improved overall. States back is not locking up as often, can walk around and work but can't do what other people can do. Rigth knee is also doing well, will have times that has no pain. Will still have pain when sitting long periods but only up to a 2/10. Hasn't had to take medication for her knee in weeks. Bacilio feels like as a pinch in upper back and will have tingling in arm at times. Reported Pain Level Pain Score 2,1: Self Report Assessment PT Clinical Summary Pt reports feeling greatly improved, that she is consistent in her home exercises and continues to improve. Pt currently complains of thoracic spine pain. Discussed options for self-mobilization and pharmacy care coordinator as well as returning to therapy for this diagnosis if needed. Pt has improved in multiple aspects and met multiple goals however appears to have plateaued at this time with strength testing. Pt also has met her limit of insurance visits for this plan of care. Thus therapy plan was finalized and patient is being discharged to continue HEP independently.
== END 2023-09-06 16:38 | disposition home or self-care (01) ==
LOC: ANHHIPT 15:30
PROVIDERS: PCP Family Medicine; Visit Provider Family Medicine
DX: M25.561 Pain in right knee (principal)
CPT/HCPCS: 97014; 97110; 97750; G0283

== ENCOUNTER 2024-01-25 16:02 | Emergency (ER) | payer OTHER, SELFPAY ==
[2024-01-25] VITALS (14 sets, daily range): BP systolic 123–154; BP diastolic 89–102; PULSE 65–83; RESP 12–25; O2SAT 97–100
--- NOTE | ~2024-01-25 | XR_ITS ---
EXAMINATION: XR chest 2V Exam Date/Time: 01/25/2024 16:33 SAFETY INSTRUCTION POLICE OFFICER HISTORY: cp Comparison: 07/24/2022. RESULT: Lines, tubes, and devices: None. Lungs and pleura: Clear. Cardiomediastinal silhouette: Stable. Other: No acute osseous or upper abdominal finding. IMPRESSION: No acute cardiopulmonary process. Reviewed, dictated and finalized at location K. TY INSTRUCTION POLICE OFFICER
--- NOTE | ~2024-01-25 | CT_ITS ---
EXAMINATION: CTA brain carotid DATE: 01/25/2024 19:00 INDICATION: blurry vision, R arm numbness TECHNIQUE: Computed tomographic angiography (CTA) of the head was performed without and with 100 mL O mnipaque-350 intravenous contrast. CTA of the neck was performed with intravenous contrast. The dose- length product was 1733.98 mGy-cm. Maximum intensity projection and volume rendered 3D-reconstruction s were created by the technologist on a separate workstation. COMPARISON: None. FINDINGS: CT BRAIN: No acute large vessel infarct, intracranial hemorrhage, mass, or hydrocephalus. Partially empty sella . CTA HEAD: No large vessel occlusion, aneurysm, high flow vascular malformation, nidus or extravasation. Hypopla stic/absent right P1 segment, dominant flow to the right PHOTOGRAPHY SPOTTER is via a patent and prominent right post erior communicating artery. CTA NECK: Aortic arch and proximal great vessels: Normal arch anatomy. Right common carotid, carotid bifurcation, and internal carotid artery: No plaque.There is 0% stenosi s of the proximal right internal carotid artery relative to normal distal artery lumen diameter (NASC ET criteria). Left common carotid, carotid bifurcation, and internal carotid artery: No plaque.There is 0% stenosis of the proximal left internal carotid artery relative to normal distal artery lumen diameter (NASCET criteria). Vertebral arteries: No significant plaque or stenosis. Other findings: Bilateral anterior cervical lymphadenopathy. Mild degenerative disc disease in the ce rvical spine. IMPRESSION: No acute intracranial process. No large vessel intracranial occlusion, high-grade intracranial stenosis, or aneurysm. No carotid or vertebral artery occlusion, dissection, or significant stenosis. Cervical lymphadenopathy. Reviewed, dictated and finalized at location K. ETO REPAIRER IMPRESSION: No acute intracranial process. No large vessel intracranial occlusion, high-grade intracranial stenosis, or an eurysm. No carotid or vertebral artery occlusion, dissection, or significant stenosis. Cervical lymphadenopathy.
--- NOTE | 2024-01-25 16:05 | ECG_ITS ---
Measurements Intervals [place] Rate: 87 P: 15 WV: 194 QRS: 21 QRSD: 95 T: 29 QT: 358 QTc: 431 Interpretive Statements SINUS RHYTHM LOW QRS VOLTAGE IN LIMB LEADS CONSIDER ANTEROSEPTAL INFARCT, AGE INDETERMINATE BASELINE ARTIFACT- III, AVF, V4 ABNORMAL ECG NO PREVIOUS ECG AVAILABLE FOR COMPARISON Electronically Signed On 01-25-2024 17:08:30 VB NET PROGRAMMER by Gideon Reid D.O.
[2024-01-25] MEDS: ASPIRIN 81 MG CHEWABLE TABLET 324 MG PO (16:31)
[2024-01-25 16:39] LABS: Basophils Absolute Auto 0.1 K/mm3 (0.0-0.1); Basophils Percent Auto 0.5 % (0.2-1.2); Eosinophils Absolute Auto 0.2 K/mm3 (0-0.3); Eosinophils Percent Auto 1.6 % (0-4.4); Hemoglobin 13.4 g/dL (12.0-15.0); Immature Granulocyte Absolute 0.02 K/mm3 (0.00-0.031); Immature Granulocyte Percent A 0.2 % (0-0.5); Lymphocytes Absolute Auto 2.93 K/mm3 (0.9-3.2); Lymphocytes Percent Auto 30.5 % (18.3-44.2); Mean Corpuscular HGB Conc 32.7 g/dl (32-36); Mean Corpuscular Hemoglobin 28.3 pg (26-34); Mean Corpuscular Volume 86.7 fl (80-100); Mean Platelet Volume 9.6 fl (7.4-10.4); Monocytes Absolute Auto 0.7 K/mm3 (0.1-0.6); Neutrophils Absolute Auto 5.8 K/mm3 (1.3-6.7); Neutrophils Percent Auto 60.2 % (45.5-73.1); Platelet Count Result 330 k/mm3 (150-375); Red Blood Count 4.73 M/mm3 (4.2-5.4); Red Cell Distribution Width 13.6 % (11.5-14.5); White Blood Count 9.6 K/mm3 (4.5-10.0)
[2024-01-25 16:58] LABS: Alanine Aminotransferase 15 U/L (6-35); Albumin Level 4.2 g/dL (3.5-5.1); Alkaline Phosphatase 72 U/L (38-126); Anion Gap 7 mmol/L (8-16); Aspartate Amino Transferase 19 U/L (14-36); Bilirubin,Total 0.4 mg/dL (0.2-1.3); Blood Urea Nitrogen 10 mg/dL (7-17); Calcium 9.2 mg/dL (8.4-10.2); Carbon Dioxide 24 mmol/L (22-30); Chloride 105 mmol/L (98-107); Estimated CRCL calculation 145 ml/min; Estimated Glomerular Filt Rate > 60; Glucose 81 mg/dL (65-110); Lipase 48 U/L (23-300); Potassium 3.8 mmol/L (3.4-5.0); Sodium 136 mmol/L (137-145)
[2024-01-25 17:10] LABS: Troponin I < 0.012 ng/mL (0.000-0.034)
[2024-01-25 17:15] LABS: INR 1.1; Prothrombin Time 14.4 Seconds (11.1-14.7)
[2024-01-25 17:16] LABS: Partial Thromboplastin Time 31.4 SECONDS (22.3-36.8)
--- NOTE | 2024-01-25 17:57 | ED.CHESTPAIN ---
HPI - Chest Pain General Chief Complaint: Chest Pain Stated Complaint: chest pain, blurry vision, migraine, palpitations Time Seen by Provider: 01/25/24 16:14 History of Present Illness HPI narrative: Patient is a 38-year-old female presenting with headache and right arm tingling. Patient states that yesterday she kept having episodes of palpitations. States that she has had these episodes before but it was more persistent than normal. States that she had mild chest pain with this. Last night she noticed that her vision was very blurry in her right arm felt numb. States that it felt like it had fallen asleep. This improved and she went to bed. This morning she again had blurry vision and her arm started to feel tingly again. States that her arm also felt weak. she came in for evaluation and states that she has developed a headache that is slowly worsening over the last several hours. No nuchal rigidity, no fevers or chills, no cough or shortness of breath. No speech changes, facial droop, lower extremity weakness or paresthesias. No leg swelling. No further complaints. Related Data Allergies Allergy/AdvReac Type Severity Reaction Status Date / Time No Known Allergies Allergy Verified 01/17/24 15:33 Review of Systems Review of Systems: All systems reviewed & are unremarkable except as noted in HPI and below PMFSH Past Medical History Medical History ADHD Anxiety Cellulitis Chronic back pain Insomnia Lumbar spondylosis Morbid obesity with BMI of 60.0-69.9, adult Right knee pain Screening cholesterol level Screening for thyroid disorder Type 2 diabetes mellitus Hemoglobin A1c was 8.2% on 07/17/2022. UTI (urinary tract infection) Surgical History Surgical History History of dilation and curettage Family History Family History Father Family history non-contributory History of blood clots Diabetes mellitus Hypertension Acute myocardial infarction Mother Hypertension Social History Social History Social History: Surrogate medical decision maker: Cheng Encinas, shireen. Code status: Full code. Smoking status: Current some day smoker Tobacco type: cigarettes Additional smoking assessment comments: She smokes cigarettes here or there, perhaps 1 pack every couple of weeks. Alcohol intake: never Substance use: never Substance use type: does not use Lack of Transportation: No Lack of Food: Never True Current Housing: I Have Housing Concerned About Future Housing: No Difficulty Paying Gas/Electric Bills: No Difficulty Paying for Meds: No Currently Unemployed: No Education: Don't Know Difficulty w/ Childcare or Family Care: No Living arrangements: with family Additional living arrangements comments: The patient lives with her son in [place]. 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 Spiritual care concerns: No Exam Narrative: GENERAL: Well-appearing, well-nourished, and in no acute distress. HEAD: Normocephalic, atraumatic. EYES: PERRLA and EOMI. ENT: Grossly unremarkable NECK: Supple. CHEST: Clear to auscultation. No respiratory distress. HEART: Regular rate and rhythm. ABDOMEN: Soft, nontender, nondistended EXTREMITIES: Normal range of motion. No edema. SKIN: Warm, dry, no rash. NEURO: Alert and oriented x3. 5/5 strength in all extremities, no pronator drift, mildly decreased sensation in the right arm; no facial droop, no dysarthria or aphasia PSYCH: Normal mood and affect. Course Vital Signs Vital signs: Vital Signs Pulse Rate 80 01/25/24 16:04 Respiratory Rate 15 01/25/24 16:04 Blood Pressure 154/102 H 01/25/24 16:04 Pulse Oximetry 100 01/25/24
[2024-01-25] MEDS: SODIUM CHLORIDE 0.9% IV 1,000 ML 999 ML IV CONT (18:31)
[2024-01-25] MEDS: diphenhydrAMINE HCl INJ 50 MG/ML VIAL 25 MG IV PUSH (18:32)
[2024-01-25] MEDS: PROCHLORPERAZINE EDISYLATE 10 MG/2 ML VIAL IV PUSH (18:35)
--- NOTE | 2024-01-25 19:17 | PC.NURSE ---
Report received from [place] Oliva. Assumed care of patient at this time.
--- NOTE | 2024-01-25 19:48 | PC.NURSE ---
Patient ambulated to the bathroom and back to her room with a steady unassisted gait. Patient states she feels better but still has the tingling to her right hand.
[2024-01-25 19:50] LABS: Lipase 50 U/L (23-300); Magnesium 2.1 mg/dL (1.6-2.3)
[2024-01-25 20:02] LABS: Troponin I < 0.012 ng/mL (0.000-0.034)
== END 2024-01-25 21:44 | disposition home or self-care (01) ==
PROVIDERS: Emergency Medicine; Emergency Provider Emergency Medicine; PCP Family Medicine
DX: R20.2 Paresthesia of skin (principal); R51.9 Headache, unspecified; R00.2 Palpitations; E11.9 Type 2 diabetes mellitus without complications; E66.01 Morbid (severe) obesity due to excess calories; Z68.43 Body mass index [BMI] 50.0-59.9, adult; F17.210 Nicotine dependence, cigarettes, uncomplicated; F90.9 Attention-deficit hyperactivity disorder, unspecified type; F41.9 Anxiety disorder, unspecified; Z87.440 Personal history of urinary (tract) infections; Z79.85 Long-term (current) use of injectable non-insulin antidiabetic drugs; Z79.84 Long term (current) use of oral hypoglycemic drugs; R94.31 Abnormal electrocardiogram [ECG] [EKG]
CPT/HCPCS: 36415; 70496; 70498; 71046; 80053; 83690; 83735; 84484; 85025; 85610; 85730; 93005; 96361; 96374; 96375; 99284; A9270; J0780; J1200; J7030; Q9967

== ENCOUNTER 2024-03-16 21:48 | Emergency (ER) | payer OTHER, SELFPAY ==
--- NOTE | ~2024-03-16 | XR_ITS ---
EXAMINATION: XR chest 2V Exam Date/Time: 03/16/2024 22:00 CDT HISTORY: cp, LEFT SIDE Comparison: 01/25/2024. RESULT: Lines, tubes, and devices: None. Lungs and pleura: Clear. Cardiomediastinal silhouette: Stable. Other: No acute osseous or upper abdominal finding. IMPRESSION: No acute cardiopulmonary process. Reviewed, dictated and finalized at location K.
[2024-03-16 21:56] VITALS: BP 128/100; PULSE 89; RESP 20; TEMP 36.5; O2SAT 100
[2024-03-16 22:06] LABS: Basophils Absolute Auto 0.1 K/mm3 (0.0-0.1); Basophils Percent Auto 0.5 % (0.2-1.2); Eosinophils Absolute Auto 0.1 K/mm3 (0-0.3); Eosinophils Percent Auto 1.4 % (0-4.4); Hemoglobin 13.2 g/dL (12.0-15.0); Immature Granulocyte Absolute 0.01 K/mm3 (0.00-0.031); Immature Granulocyte Percent A 0.1 % (0-0.5); Lymphocytes Absolute Auto 2.94 K/mm3 (0.9-3.2); Lymphocytes Percent Auto 28.4 % (18.3-44.2); Mean Corpuscular Hemoglobin 28.6 pg (26-34); Mean Corpuscular Volume 86.6 fl (80-100); Mean Platelet Volume 9.7 fl (7.4-10.4); Monocytes Absolute Auto 0.7 K/mm3 (0.1-0.6); Monocytes Percent Auto 6.7 % (2.6-8.5); Neutrophils Absolute Auto 6.5 K/mm3 (1.3-6.7); Neutrophils Percent Auto 62.9 % (45.5-73.1); Platelet Count Result 303 k/mm3 (150-375); Red Blood Count 4.62 M/mm3 (4.2-5.4); Red Cell Distribution Width 14.6 % (11.5-14.5); White Blood Count 10.4 K/mm3 (4.5-10.0)
[2024-03-16 22:17] LABS: Alanine Aminotransferase 18 U/L (6-35); Albumin Level 4.5 g/dL (3.5-5.1); Alkaline Phosphatase 69 U/L (38-126); Anion Gap 6 mmol/L (4-12); Aspartate Amino Transferase 19 U/L (14-36); Bilirubin,Total 0.4 mg/dL (0.2-1.3); Blood Urea Nitrogen 16 mg/dL (7-17); Calcium 9.3 mg/dL (8.4-10.2); Carbon Dioxide 24 mmol/L (22-30); Chloride 106 mmol/L (98-107); Estimated CRCL calculation 133 ml/min; Estimated Glomerular Filt Rate > 60; Glucose 100 mg/dL (65-110); Lipase 66 U/L (23-300); Partial Thromboplastin Time 31.3 Seconds (22.3-36.8); Potassium 4.3 mmol/L (3.4-5.0); Prothrombin Time 13.7 Seconds (11.1-14.7); Sodium 136 mmol/L (137-145)
[2024-03-16 22:28] LABS: Troponin I < 0.012 ng/mL (0.000-0.034)
== END 2024-03-16 22:00 | disposition left against medical advice (07) ==
PROVIDERS: Emergency Provider Emergency Medicine; PCP Family Medicine
DX: R07.9 Chest pain, unspecified (principal)
CPT/HCPCS: 36415; 71046; 80053; 83690; 84484; 85025; 85610; 85730; 99199